=== PATIENT | male | born 1935 | race Caucasian/White ===

== ENCOUNTER 2016-12-12 15:19 | Outpatient (CLI) | payer MEDICARE, OTHER | END 2016-12-12 15:20 | disposition home or self-care (01) | LOC: RT 15:19 | PROVIDERS: ATTEND Nurse Practitioner Family | DX: R07.9 Chest pain, unspecified (principal) | CPT/HCPCS: 93005 ==

== ENCOUNTER 2020-01-14 11:50 | Outpatient (CLI) | payer MEDICARE, OTHER ==
[2020-01-14 16:04] LABS: BASOPHILS # (AUTO) 0.1 10^3/uL (0.0-0.1); BASOPHILS % (AUTO) 1.1 %; EOSINOPHILS # (AUTO) 0.2 10^3/uL (0.0-0.7); EOSINOPHILS % (AUTO) 2.7 %; HGB - HEMOGLOBIN 11.4 g/dL (14.0-18.0); LYMPHOCYTES # (AUTO) 2.5 10^3/uL (1.5-3.5); LYMPHOCYTES % (AUTO) 39.5 %; MEAN CORPUSCULAR HEMOGLOBIN 35.4 pg (27.0-31.0); MEAN CORPUSCULAR HGB CONC 33.6 g/dL (32.0-36.0); MEAN CORPUSCULAR VOLUME 105.3 fL (80.0-94.0); MEAN PLATELET VOLUME 11.1 fL (7.4-11.4); MONOCYTES # (AUTO) 0.7 10^3/uL (0.0-1.0); MONOCYTES % (AUTO) 11.1 %; NEUTROPHILS # (AUTO) 2.9 10^3/uL (1.5-6.6); NEUTROPHILS % (AUTO) 45.3 %; PLT - PLATELET COUNT 179 10^3/uL (130-450); RED BLOOD COUNT 3.22 10^6/uL (4.70-6.10); RED CELL DISTRIBUTION WIDTH 14.7 % (12.0-15.0); WHITE BLOOD COUNT 6.4 x10^3/uL (4.8-10.8)
[2020-01-14 16:12] LABS: ALBUMIN 3.8 g/dL (3.2-5.5); ALBUMIN/GLOBULIN RATIO 1.2 (1.0-2.2); BILIRUBIN,TOTAL 1.4 mg/dL (0.2-1.0); CREATININE 0.9 mg/dL (0.6-1.2)
== END 2020-01-14 11:51 | disposition home or self-care (01) ==
LOC: LAB.S 11:50
PROVIDERS: ATTEND Internal Medicine
DX: R63.4 Abnormal weight loss (principal)
CPT/HCPCS: 36415; 80053; 84443; 85025

== ENCOUNTER 2020-02-05 14:52 | Outpatient (CLI) | payer MEDICARE, OTHER ==
[2020-02-05 20:44] LABS: FOLATE 10.6 ng/mL (5.90 - >24.8)
== END 2020-02-05 14:53 | disposition home or self-care (01) ==
LOC: LAB.S 14:52
PROVIDERS: ATTEND Nurse Practitioner Family
DX: D53.9 Nutritional anemia, unspecified (principal)
CPT/HCPCS: 36415; 82607; 82746; 82977

== ENCOUNTER 2020-04-26 13:41 | Outpatient (CLI) | payer MEDICARE, OTHER ==
[2020-04-26 20:43] LABS: GAMMA GLUTAMYL TRANSPEPTIDASE 26 IU/L (8-55); LIPASE 39 U/L (22-51)
[2020-04-26 21:06] LABS: CRP - C-REACTIVE PROTEIN < 1.0 mg/dL (0-1.0)
== END 2020-04-26 13:42 | disposition home or self-care (01) ==
LOC: LAB.S 13:41
PROVIDERS: ATTEND Family Medicine
DX: R63.4 Abnormal weight loss (principal); Z85.46 Personal history of malignant neoplasm of prostate
CPT/HCPCS: 36415; 82977; 83690; 84153; 86140

== ENCOUNTER 2020-05-19 09:21 | Outpatient (CLI) | payer MEDICARE, OTHER ==
[2020-05-19] MEDS ORDERED: IOVERSOL 320 100 ML VIAL IVP ONE ×2 (09:50→11:02)
[2020-05-19] MEDS ORDERED: IOVERSOL 320 50 ML VIAL ONE (09:50)
[2020-05-19 10:08] LABS: ALBUMIN 3.8 g/dL (3.2-5.5); ALBUMIN/GLOBULIN RATIO 1.2 (1.0-2.2); BILIRUBIN,TOTAL 1.1 mg/dL (0.2-1.0); CALCIUM 9.5 mg/dL (8.5-10.3); CREATININE 0.9 mg/dL (0.6-1.2)
[2020-05-19] MEDS ORDERED: IOVERSOL 320 50 ML VIAL PO ONE (11:02)
--- NOTE | 2020-05-19 14:47 | CT Report ---
PROCEDURE: Abdomen/Pelvis W INDICATIONS: ABN WEIGHT LOSS CONTRAST: IV CONTRAST: Optiray 320 ml: 100 PO CONTRAST: Optiray 320 ml50 TECHNIQUE: After the administration of oral and IV contrast, 5 mm thick sections acquired from the diaphragms to the symphysis. 5 mm thick coronal and sagittal reformats were acquired. For radiation dose reducti on, the following was used: automated exposure control, adjustment of mA and/or kV according to [place] ent size. COMPARISON: None. FINDINGS: Image quality: Excellent. ABDOMEN: Lung bases: There are right lower lobe scars and atelectasis. Heart size is normal. Small hiatal he rnia. Concentric thickening at the GE junction. Solid organs: A 4 mm low-density nodule in the anterior hepatic dome is most likely a cyst. Liver an d spleen are normal in size and enhancement. Gallbladder is normal. Biliary system is non dilated. Pancreas enhances normally. No adrenal nodules. Kidneys demonstrate normal size and enhancement, w ithout hydronephrosis. Peritoneum and bowel: Note is made of partial colectomy and a colostomy in the left lower quadrant. T here is a large amount of stool in colon. Bowel loops demonstrate normal wall thickness and caliber. No free fluid or air. Nodes and vessels: No retroperitoneal or mesenteric adenopathy by size criteria. Aorta and inferior vena cava are normal in size. Miscellaneous: Mild parastomal hernia containing a short segment of colon at the colostomy site. PELVIS: Genitourinary: Bladder wall thickness is normal. There are metallic implants in prostate. Miscellaneous: No inguinal hernias or adenopathy. Bones: No suspicious bony lesions. No vertebral body compression fractures. Mild degenerative walker ges in lumbar spine. IMPRESSION: 1. There is a small hiatal hernia with concentric thickening at GE junction. Upper endoscopy or esoph agram is suggested for follow-up evaluation. 2. Partial colectomy and a colostomy in the left lower quadrant. There is mild peristomal hernia with herniation of a short segment of colon. No findings to suggest colonic obstruction. 3. Large amount of stool in colon. 4. Right lower lobe scars and atelectasis. 5. Metallic instruments in prostate. Reviewed by: Jeremiah Rosario MD on 05/19/2020 2:46 PM PST Approved by: Jeremiah Rosario MD on 05/19/2020 2:46 PM PST Station ID: [id number]
== END 2020-05-19 09:22 | disposition home or self-care (01) ==
LOC: DI 09:21
PROVIDERS: ATTEND Family Medicine
DX: R63.4 Abnormal weight loss (principal); K44.9 Diaphragmatic hernia without obstruction or gangrene; K94.09 Other complications of colostomy
CPT/HCPCS: 36415; 74177; 80053; Q9967

== ENCOUNTER 2021-08-21 09:27 | Outpatient (CLI) | payer MEDICARE, OTHER ==
--- NOTE | 2021-08-21 10:01 | XRAY Report ---
PROCEDURE: Chest 2 View X-Ray INDICATIONS: RESPIRATORY CRACKLES TECHNIQUE: 2 view(s) of the chest. COMPARISON: None. FINDINGS: Surgical changes and devices: Median sternotomy wires are intact. Multiple clips in the mediastinum c ompatible with prior CABG. Lungs and pleura: No pneumothorax. Lungs are clear. There is minimal blunting of the bilateral cos tophrenic angles without substantial pleural effusion visualized. Mediastinum: Mediastinal contours are normal. Heart size is normal. Bones and chest wall: No suspicious bony abnormalities. Soft tissues appear unremarkable. IMPRESSION: Minimal blunting of the bilateral costophrenic angles which may represent pleural thicke atif/scarring versus tiny pleural effusions. Otherwise, no acute cardiopulmonary abnormalities identi fied. No focal airspace disease. Reviewed by: Nicholas Hodges MD on 08/21/2021 10:00 AM [facility] Approved by: Nicholas Hodges MD on 08/21/2021 10:00 AM [facility] Station ID: [id number]
== END 2021-08-21 09:28 | disposition home or self-care (01) ==
LOC: DI.S 09:27
PROVIDERS: ATTEND Internal Medicine
DX: R09.89 Other specified symptoms and signs involving the circulatory and respiratory systems (principal); R91.8 Other nonspecific abnormal finding of lung field

== ENCOUNTER 2023-02-04 08:24 | Outpatient (CLI) | payer MEDICARE, OTHER ==
[2023-02-04 14:28] LABS: BASOPHILS % (AUTO) 0.4 %; EOSINOPHILS % (AUTO) 1.1 %; HCT - HEMATOCRIT 32.8 % (42.0-52.0); HGB - HEMOGLOBIN 10.8 g/dL (14.0-18.0); MEAN CORPUSCULAR HEMOGLOBIN 34.6 pg (27.0-31.0); MEAN CORPUSCULAR HGB CONC 32.9 g/dL (32.0-36.0); MEAN CORPUSCULAR VOLUME 105.1 fL (80.0-94.0); MEAN PLATELET VOLUME 10.7 fL (7.4-11.4); MONOCYTES % (AUTO) 4.4 %; NEUTROPHILS % (AUTO) 13.9 %; PLT - PLATELET COUNT 168 10^3/uL (130-450); RED BLOOD COUNT 3.12 10^6/uL (4.70-6.10); RED CELL DISTRIBUTION WIDTH 17.4 % (12.0-15.0); WHITE BLOOD COUNT 21.5 x10^3/uL (4.8-10.8)
[2023-02-04 14:31] LABS: ABNORMAL LYMPHS % (MANUAL) 0 %; BAND NEUTROPHILS % (MANUAL) 0 %
[2023-02-04 14:54] LABS: ALBUMIN/GLOBULIN RATIO 1.7 (1.0-2.2); BILIRUBIN,TOTAL 1.2 mg/dL (0.2-1.0); CALCIUM 9.6 mg/dL (8.5-10.3); CREATININE 0.9 mg/dL (0.6-1.3); EOSINOPHILS # (MANUAL) 0.2 10^3/uL (0-0.7); LYMPHOCYTES # (MANUAL) 15.7 10^3/uL (1.5-3.5); LYMPHOCYTES % (MANUAL) 73 %; MONOCYTES # (MANUAL) 0.6 10^3/uL (0.0-1.0); NEUTROPHILS # (MANUAL) 4.9 10^3/uL (1.5-6.6); PLATELET ESTIMATE, MANUAL NORMAL (130-450,000) (NORMAL); PLATELET MORPHOLOGY NORMAL APPEARANCE (NORMAL); POTASSIUM 4.3 mmol/L (3.5-4.5); RBC MORPHOLOGY (MULTIPLE) NORMAL APPEARANCE (NORMAL); TOTAL PROTEIN 6.3 g/dL (6.4-8.9)
[2023-02-04 14:55] LABS: DIFFERENTIAL COMMENT MANUAL DIFFERENTIAL
[2023-02-04 21:29] LABS: ESTIMATED AVERAGE GLUCOSE 105 mg/dL (70-100); HEMOGLOBIN A1c% 5.3 % (4.27-6.07)
== END 2023-02-04 08:25 | disposition home or self-care (01) ==
LOC: LAB.S 08:24
PROVIDERS: ATTEND Internal Medicine
DX: R35.89 Other polyuria (principal); Z85.46 Personal history of malignant neoplasm of prostate; Z92.3 Personal history of irradiation
CPT/HCPCS: 36415; 80053; 83036; 84153; 85025

== ENCOUNTER 2023-02-05 13:26 | Outpatient (CLI) | payer MEDICARE, OTHER ==
[2023-02-05 19:50] LABS: BASOPHILS % (AUTO) 0.5 %; EOSINOPHILS % (AUTO) 0.6 %; HCT - HEMATOCRIT 33.7 % (42.0-52.0); HGB - HEMOGLOBIN 10.9 g/dL (14.0-18.0); LYMPHOCYTES % (AUTO) 75.8 %; MEAN CORPUSCULAR HEMOGLOBIN 34.3 pg (27.0-31.0); MEAN CORPUSCULAR HGB CONC 32.3 g/dL (32.0-36.0); MEAN PLATELET VOLUME 11.6 fL (7.4-11.4); MONOCYTES % (AUTO) 4.3 %; NEUTROPHILS % (AUTO) 18.5 %; PLT - PLATELET COUNT 181 10^3/uL (130-450); RED BLOOD COUNT 3.18 10^6/uL (4.70-6.10); RED CELL DISTRIBUTION WIDTH 17.2 % (12.0-15.0); WHITE BLOOD COUNT 22.2 x10^3/uL (4.8-10.8)
[2023-02-05 19:59] LABS: ABNORMAL LYMPHS % (MANUAL) 0 %
[2023-02-05 20:46] LABS: BAND NEUTROPHILS % (MANUAL) 1 %; EOSINOPHILS # (MANUAL) 0.2 10^3/uL (0-0.7); LYMPHOCYTES # (MANUAL) 14.7 10^3/uL (1.5-3.5); LYMPHOCYTES % (MANUAL) 66 %; METAMYELOCYTES % (MANUAL) 1 %; MONOCYTES # (MANUAL) 0.7 10^3/uL (0.0-1.0); NEUTROPHILS # (MANUAL) 6.4 10^3/uL (1.5-6.6)
[2023-02-05 20:54] LABS: DIFFERENTIAL COMMENT MANUAL DIFFERENTIAL; PLATELET ESTIMATE, MANUAL NORMAL (130-450,000) (NORMAL); PLATELET MORPHOLOGY NORMAL APPEARANCE (NORMAL)
== END 2023-02-05 13:27 | disposition home or self-care (01) ==
LOC: LAB.S 13:26
PROVIDERS: ATTEND Internal Medicine
DX: D72.829 Elevated white blood cell count, unspecified (principal); D64.9 Anemia, unspecified
CPT/HCPCS: 36415; 85025

== ENCOUNTER 2023-02-13 00:40 | Outpatient (CLI) | payer MEDICARE, OTHER | END 2023-02-13 23:59 | disposition critical access hospital (66) | LOC: EMS 00:40 | DX: N48.89 Other specified disorders of penis (principal); R39.15 Urgency of urination; R32 Unspecified urinary incontinence | CPT/HCPCS: A0425; A0429 ==

== ENCOUNTER 2023-02-13 01:17 | Emergency (ER) | payer MEDICARE, OTHER ==
--- OUTSIDE RECORDS SUMMARY | 2023-02-13 01:33 | EXTERNAL MEDICAL SUMMARY RPT | Continuity of Care Document ---
Author Name Unknown Address [address] [place] [address] Phone Organization [place] Address [address] [place] [address] Phone Care Team Providers Care Retail Analyst Name Role Phone Judi Blanca Pa-C Unavailable Unavailable Medications date description facility 2022-11-17 00:00 [facility] [place] 2022-11-17 00:00 [facility] [place] 2022-11-17 00:00 [facility] [place] 2022-11-17 00:00 [facility] [place] 2022-11-17 00:00 omega 2-gyr-zlj-fish oil [facility] [place] 2022-11-17 00:00 omega 7-hhu-ihq-fish oil [facility] [place] 2022-11-17 00:00 omega 7-ybm-wid-fish oil [facility] [place] 2022-11-17 00:00 multivitamin [facility] [place]
[2023-02-13 03:20] LABS: BILIRUBIN,URINE NEGATIVE (NEGATIVE); GLUCOSE, URINE (UA) NEGATIVE (NEGATIVE); KETONES,URINE (UA) NEGATIVE (NEGATIVE); LEUKOCYTE ESTERASE, URINE NEGATIVE (NEGATIVE); NITRITE,URINE NEGATIVE (NEGATIVE); OCCULT BLOOD,URINE NEGATIVE (NEGATIVE); PH,URINE 6.5 PH (5.0-7.5); PROTEIN,URINE NEGATIVE (NEGATIVE); UROBILINOGEN,URINE 0.2 (NORMAL) E.U./dL (NORMAL)
[2023-02-13 03:25] LABS: CLARITY,URINE CLEAR (CLEAR)
--- NOTE | 2023-02-13 03:37 | ED Physician Documentation ---
PD HPI MALE - Stated complaint Stated Complaint: - Chief complaint Chief Complaint: General - History obtained from History obtained from: Patient - History of Present Illness Timing - onset: Enter time (13:00), Yesterday - Additional information Additional information: HPI from patient. Since mid-day, yesterday, patient has been experiencing episodic penile pain. He says the pain comes on gradually, slowly builds in intensity, and is relieved with sudden , uncontrollable urine output (he is thus wearing adult diapers since yesterday, which he has never had to use before). After the urine output, the penile pain gradually reoccurs and the cycle starts again. He has never had this problem before. Review of Systems Constitutional: reports: Reviewed and negative GI: denies: Abdominal Pain, Abdominal Swelling, Nausea, Vomiting, Constipation : reports: Incontinent. 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 - Past Surgical History General: Bowel surgery Cardiovascular: CABG - Present Medications Home Medications: Ambulatory Orders Medication Instructions Recorded Confirmed Atorvastatin Calcium 20 mg PO HS 02/13/23 02/13/23 Multivitamin 1 each PO DAILY 02/13/23 02/13/23 Nitrofurantoin [Macrobid] 100 mg PO BID #10 cap 02/13/23 02/13/23 [place]-3 Fatty Acids [[place]-3] 1,000 mg PO DAILY 02/13/23 02/13/23 Phenazopyridine HCl [Pyridium] 200 mg PO TID PRN #6 tablet 02/13/23 02/13/23 Docusate Sodium 100Mg Capsule 100 mg PO DAILY PRN #14 cap 02/14/23 [Colace 100Mg Capsule] HYDROcod/ACETAM 5/325 [[place] 5/325] 1 tab PO Q4H PRN #5 tablet 02/14/23 - Allergies Allergies/Adverse Reactions: Allergies Allergy/AdvReac Type Severity Reaction Status Date / Time No Known Drug Allergies Allergy Verified 02/13/23 20:09 - Social History Does the pt smoke?: No Smoking Status: Never smoker Does the pt drink ETOH?: No Does the pt have substance abuse?: No - Immunizations Immunizations are current?: Yes PD ED PE NORMAL - Vitals Vital signs reviewed: Yes - General General: Alert and oriented X 3, No acute distress, Well developed/nourished - Cardiac Cardiac: RRR - Respiratory Respiratory: No respiratory distress, Clear bilaterally - Abdomen Abdomen: Soft, Non tender, Non distended, Other (LLQ colostomy bag in place, small amount firm stool in bag) - Back Back: No CVA TTP - Derm Derm: Normal color, Warm and dry - Neuro Neuro: Alert and oriented X 3 Results - Vitals Vitals: Oxygen O2 Source Room air - Labs Labs: Laboratory Tests 02/13/23 02/13/23 02/13/23 03:13 04:21 04:21 WBC 20.3 H RBC 2.99 L Hgb 10.1 L Hct 30.6 L MCV 102.3 H MCH 33.8 H MCHC 33.0 RDW 17.2 H Plt Count 151 MPV 10.2 Neut # (Auto) Not Reportable Lymph # (Auto) Not Reportable [place] # (Auto) Not Reportable Eos # (Auto) Not Reportable Baso # (Auto) Not Reportable Absolute Nucleated RBC Not Reportable Total Counted 100 Band Neuts % (Manual) 7 Abnorm Lymph % (Manual) 0 Nucleated RBC % Not Reportable Neutrophils # (Manual) 6.5 Lymphocytes # (Manual) 12.2 H Monocytes # (Manual) 0.8 Eosinophils # (Manual) 0.8 H Basophils # (Manual) 0.0 Differential Comment MANUAL DIFFERENTIAL Platelet Estimate NORMAL (130-450,000) RBC Morph Micro Appear 1+ MACROCYTOSIS Sodium 136 Potassium 4.6 H Chloride 105 Carbon Dioxide 27 Anion Gap 4.0 L BUN 29 H Creatinine 0.9 Estimated GFR (MDRD) 80 L Glucose 89 Calcium 9.3 Total Bilirubin 1.1 H AST 27 ALT 21 Alkaline Phosphatase 40 L Total Protein 6.2 L Albumin 3.9 Globulin 2.3 Albumin/Globulin Ratio 1.7 Lipase 53 Urine Color YELLOW Urine Clarity CLEAR Urine pH 6.5 Ur Specific [place] 1.015 Urine Protein NEGATIVE Urine Glucose (UA) NEGATIVE Urine Ketones NEGATIVE Urine Occult Blood NEGATIVE Urine Nitrite NEGATIVE Urine Bilirubin NEGATIVE Urine Urobilinogen 0.2 (NORMAL) Ur Leukocyte Esterase NEGATIVE Ur Microscopic Review NOT INDICATED Urine Culture Comments NOT INDICATED - Rads (name of study) CT A/P Relevant Findings:: Prelim report reviewed, See rad report PD Medical Decision Making - ED course Complexity details: reviewed results, re-evaluated patient, considered differential, d/w patient ED course: Tests ordered and results reviewed by me: CBC, ER abdominal panel, urinalysis, CT A/P with IV contrast. Leukocytosis noted on CBC: WBC 20.3. I note patient had a CBC performed on 02/04, WBC 21.5. I also note WBC of 22.2 performed on 02/05 in outpatient setting. I asked patient why he had these outpatient blood test, but he cannot recall why these were ordered. He says he was made aware that his white blood cell count was high, and he thinks this was the reason it was repeated. He says he had not heard back from his primary care provider yet regarding the repeat result. Mild hyperkalemia (K4.6). Mildly elevated BUN (29) with normal creatinine (0.9). Normal urinalysis. CT A/P is interpreted by the radiologist as "suspect mild cystitis. No evidence of pyonephrosis or pyelonephritis". He is given a dose of Macrobid in the emergency department along with Pyridium. My suspicion for UTI is low, given normal urinalysis and symptoms are not s/o UTI. However, given CT reading of possible mild cystitis, combined with leukocytosis without explanation for this finding, erring on the side of caution, he is given Macrobid with rx for same. Results reviewed with patient. I explained that I am treating for UTI although I have low suspicion that this is causing/contributing to his symptoms. Similarly, at this time, I do not have an explanation for his leukocytosis. I advised him to seek follow-up with his primary care provider, next available appointment, for reevaluation of his symptoms as well as his elevated white blood cell count. Return precautions are discussed. Departure - Departure Disposition: Home, Self Care Clinical Impression: Cystitis Condition: Good Instructions: ED UTI Cystitis Male Prescriptions: Nitrofurantoin [Macrobid] 100 mg PO BID #10 cap Phenazopyridine HCl [Pyridium] 200 mg PO TID PRN #6 tablet PRN Reason: dysuria Comments: Your white blood cell count was high on tonight's blood test. As we discussed, your previous to white blood cell count tests (performed over the past several days) were similarly elevated. The cause of your high white blood cell count is not apparent at this time. You need to follow-up with your primary care provider for reevaluation of this abnormal test; at your primary care provider's discretion, further tests might be needed to help determine why your white blood cell count is high. The urinalysis performed tonight is normal; this would suggest against a bladder infection. However, the CT scan of your abdomen and pelvis is suggestive of inflammation of the bladder, which is most commonly caused by a bladder infection. Erring on the side of caution, you were given an antibiotic in the emergency department (Macrobid) and I have electronically submitted a prescription for a short course of the same antibiotic to the [facility] in [place]. The cause of your penile pain is not apparent at this time, although urinary tract infection is a possible explanation. You were also given a dose of Pyridium in the emergency department; this is a medication that often helps with urinary tract infection symptoms, and hopefully this also helps with your penile pain. As we discussed, this medication will turn your urine a very unusual orange color. I have also submitted a prescription for this medication to the [facility] in [place]. Forms: PCP List Discharge Date/Time: 02/13/23 08:02
[2023-02-13 04:05] VITALS: O2SAT 100
[2023-02-13 04:37] LABS: BASOPHILS % (AUTO) 0.4 %; EOSINOPHILS % (AUTO) 1.4 %; HCT - HEMATOCRIT 30.6 % (42.0-52.0); HGB - HEMOGLOBIN 10.1 g/dL (14.0-18.0); LYMPHOCYTES % (AUTO) 67.1 %; MEAN CORPUSCULAR HEMOGLOBIN 33.8 pg (27.0-31.0); MEAN CORPUSCULAR VOLUME 102.3 fL (80.0-94.0); MEAN PLATELET VOLUME 10.2 fL (7.4-11.4); MONOCYTES % (AUTO) 5.7 %; NEUTROPHILS % (AUTO) 25.1 %; PLT - PLATELET COUNT 151 10^3/uL (130-450); RED BLOOD COUNT 2.99 10^6/uL (4.70-6.10); RED CELL DISTRIBUTION WIDTH 17.2 % (12.0-15.0); WHITE BLOOD COUNT 20.3 x10^3/uL (4.8-10.8)
[2023-02-13 04:44] LABS: ABNORMAL LYMPHS % (MANUAL) 0 %
[2023-02-13 04:56] LABS: ALBUMIN 3.9 g/dL (3.2-5.5); ALBUMIN/GLOBULIN RATIO 1.7 (1.0-2.2); BILIRUBIN,TOTAL 1.1 mg/dL (0.2-1.0); CALCIUM 9.3 mg/dL (8.5-10.3); CREATININE 0.9 mg/dL (0.6-1.3); POTASSIUM 4.6 mmol/L (3.5-4.5); TOTAL PROTEIN 6.2 g/dL (6.4-8.9)
[2023-02-13] MEDS ORDERED: ACETAMINOPHEN 325 MG TABLET PO STA (05:08)
[2023-02-13 05:29] LABS: BAND NEUTROPHILS % (MANUAL) 7 %; EOSINOPHILS # (MANUAL) 0.8 10^3/uL (0-0.7); LYMPHOCYTES # (MANUAL) 12.2 10^3/uL (1.5-3.5); LYMPHOCYTES % (MANUAL) 60 %; MONOCYTES # (MANUAL) 0.8 10^3/uL (0.0-1.0); NEUTROPHILS # (MANUAL) 6.5 10^3/uL (1.5-6.6)
[2023-02-13 05:30] LABS: DIFFERENTIAL COMMENT MANUAL DIFFERENTIAL; PLATELET ESTIMATE, MANUAL NORMAL (130-450,000) (NORMAL)
[2023-02-13] MEDS ORDERED: iohexoL-300 100 ML VIAL IVP ONE (06:11)
[2023-02-13] MEDS ORDERED: NITROFURANTOIN MACRO 100 MG CAPSULE PO STA (07:19)
[2023-02-13] MEDS ORDERED: PHENAZOPYRIDINE 100 MG TABLET PO STA (07:19)
[2023-02-13 08:49] VITALS: BP 134/74
--- NOTE | 2023-02-13 08:52 | CT Report ---
PROCEDURE: ABDOMEN/PELVIS W INDICATIONS: midline low abd/pelvic pain CONTRAST: Omni 300 100ml TECHNIQUE: After the administration of IV contrast, 5 mm thick sections acquired from the diaphragms to the symp hysis. 5 mm thick coronal and sagittal reformats were acquired. For radiation dose reduction, the f ollowing was used: automated exposure control, adjustment of mA and/or kV according to patient size. COMPARISON: 05/19/2020 FINDINGS: Image quality: Excellent. Lung bases and heart: Unremarkable. Liver: No solid mass. Gallbladder and biliary tree: Gallbladder is within normal limits. No biliary ductal dilatation. Spleen: No splenomegaly. Pancreas: No pancreatic ductal dilation. Adrenals: No adrenal nodule. Kidneys and ureters: No hydronephrosis. No renal cystic lesion which requires follow up. No solid mas s. Bowel and peritoneum: There is prior left hemicolectomy with wording colostomy construction in left l ower quadrant. There is no bowel obstruction. Fecal stasis in the colon is seen. No gross abnormal samir wel wall thickening. No abscess collection. No free fluid or free air. Lymph nodes: No central or retroperitoneal adenopathy. Vessels: No infrarenal aortic aneurysm. PELVIS Reproductive organs: Brachytherapy seeds are seen within the prostate gland.. Bladder: Bladder wall thickness is normal. Mild pericystic fat stranding is noted. No discrete bladde r wall mass is seen. Pelvic lymph nodes: No pelvic adenopathy by size criteria. Bones: No aggressive osseous abnormality. Other: No significant ventral or inguinal hernia. IMPRESSION: 1. Finding is concerning for mild cystitis with pericystic fat stranding. No bladder wall thickening or discrete bladder wall mass. Neurological correlation is recommended. 2. Prior left hemicolectomy with left-sided colostomy construction. No bowel fracture nor abnormal samir wel wall thickening. No abscess collection. No free fluid or free air. Findings are concordant with preliminary interpretation provided by [facility]. Reviewed by: Jez Zamudio MD on 02/13/2023 8:51 AM PDT Approved by: Jez Zamudio MD on 02/13/2023 8:51 AM PDT Station ID: [id number]
== END 2023-02-13 08:02 | disposition home or self-care (01) ==
LOC: EDUNIT# → ED 01:17
DX: N30.90 Cystitis, unspecified without hematuria (principal); E78.00 Pure hypercholesterolemia, unspecified; Z85.46 Personal history of malignant neoplasm of prostate; Z85.048 Personal history of other malignant neoplasm of rectum, rectosigmoid junction, and anus; Z79.899 Other long term (current) drug therapy
CPT/HCPCS: 36415; 74177; 80053; 81003; 83690; 85025; 99284; A9270; Q9967; 81001; 87086

== ENCOUNTER 2023-02-13 20:06 | Day surgery (SDC) | payer MEDICARE, OTHER ==
--- OUTSIDE RECORDS SUMMARY | 2023-02-13 20:35 | EXTERNAL MEDICAL SUMMARY RPT | Continuity of Care Document ---
Author Name Unknown Address [address] [place] [address] Phone Organization [place] Address [address] [place] [address] Phone Care Team Providers Care Farmworker Fruit Name Role Phone Judi Blanca Pa-C Unavailable Unavailable Medications date description facility 2022-11-17 00:00 [facility] [place] 2022-11-17 00:00 [facility] [place] 2022-11-17 00:00 [facility]atin [facility] [place] 2022-11-17 00:00 [facility]atin [facility] [place] 2022-11-17 00:00 omega 7-ujx-tso-fish oil [facility] [place] 2022-11-17 00:00 omega 8-nsa-zli-fish oil [facility] [place] 2022-11-17 00:00 omega 4-zka-wbv-fish oil [facility] [place] 2022-11-17 00:00 multivitamin [facility] [place]
--- NOTE | 2023-02-13 23:20 | ED Physician Documentation ---
PD HPI MALE - Stated complaint Stated Complaint: - Chief complaint Chief Complaint: General - History obtained from History obtained from: Patient - Additional information Additional information: Patient was treated and released last night from this emergency department for "penis pain" (per patient). I was the ED physician on duty at that time. He was treated with Macrobid for possible UTI (normal urinalysis, but CT A/P was consistent with inflammation of the bladder wall) and Pyridium. Both of these medications were also prescribed. He returns at this time due to recurrence of his penile pain which is now spreading to the suprapubic area and around to the low back, and associated with inability to urinate despite urge to urinate. The pain has now become constant (last night it was episodic). Review of Systems Constitutional: reports: Reviewed and negative GI: denies: Abdominal Pain (suprapubic pain, distention but not abdominal pain per se), Nausea, Vomiting, Constipation : reports: Unable to Void PD PAST MEDICAL HISTORY - Past Medical History Cardiovascular: High cholesterol - Past Surgical History General: Bowel surgery Cardiovascular: CABG Other past surgical history: colostomy placed approximately 2003 (rectal cancer) - Present Medications Home Medications: Ambulatory Orders Medication Instructions Recorded Confirmed Atorvastatin Calcium 20 mg PO HS 02/13/23 02/13/23 Multivitamin 1 each PO DAILY 02/13/23 02/13/23 Nitrofurantoin [Macrobid] 100 mg PO BID #10 cap 02/13/23 02/13/23 [place]-3 Fatty Acids [[place]-3] 1,000 mg PO DAILY 02/13/23 02/13/23 Phenazopyridine HCl [Pyridium] 200 mg PO TID PRN #6 tablet 02/13/23 02/13/23 Docusate Sodium 100Mg Capsule 100 mg PO DAILY PRN #14 cap 02/14/23 [Colace 100Mg Capsule] HYDROcod/ACETAM 5/325 [[place] 5/325] 1 tab PO Q4H PRN #5 tablet 02/14/23 - Allergies Allergies/Adverse Reactions: Allergies Allergy/AdvReac Type Severity Reaction Status Date / Time No Known Drug Allergies Allergy Verified 02/13/23 20:09 - Social History Does the pt smoke?: No Smoking Status: Never smoker Does the pt drink ETOH?: No Does the pt have substance abuse?: No - Immunizations Immunizations are current?: Yes PD ED PE NORMAL - Vitals Vital signs reviewed: Yes - General General: Alert and oriented X 3, No acute distress, Well developed/nourished - Cardiac Cardiac: RRR, No murmur - Respiratory Respiratory: No respiratory distress, Clear bilaterally - Abdomen Abdomen: Soft, Other (suprapubic TTP. LLQ colostomy in place, small amount firm stool in bag) - Derm Derm: Normal color, Warm and dry - Extremities Extremities: No edema - Neuro Neuro: Alert and oriented X 3 Results - Vitals Vitals: Vital Signs - 24 hr 02/13/23 02/13/23 02/14/23 20:09 22:04 00:00 Temperature 36.5 C Heart Rate 64 58 L 72 Respiratory 18 16 16 Rate Blood Pressure 150/70 H 148/66 H 136/71 H O2 Saturation 97 98 97 02/14/23 02/14/23 02/14/23 02:00 04:00 06:00 Temperature Heart Rate 70 71 83 Respiratory 16 16 16 Rate Blood Pressure 139/84 H 137/74 H 138/75 H O2 Saturation 97 97 97 02/14/23 02/14/23 08:00 09:18 Temperature 36.5 C Heart Rate 76 74 Respiratory 16 16 Rate Blood Pressure 135/95 H 129/62 O2 Saturation 98 98 Oxygen O2 Source Room air PD Medical Decision Making - ED course Complexity details: re-evaluated patient, considered differential, d/w patient ED course: Patient was treated released from this emergency department last night. At that time, testing included blood work , UA, and CT A/P. There were no diagnostic findings on these tests. CT scan was suspicious for bladder inflammation and leukocytosis noted; he was given / prescribed both pyridium and macrobid. His description of cycles of increasing penile pain that was relieved when he would have sudden, uncontrollable UO (sudden output and thus he was wearing adult diapers, never having had to use them previously). He returned tonight due to the pain becoming constant associated with no urine output and now with suprapubic pain radiating around to his back. Bladder appears substantially distended on my bedside ultrasound and he is tender in the suprapubic area. Unfortunately, multiple attempts to place both Osorio catheter and coud catheter were unsuccessful. With some of these attempts, though unsuccessful, withdrawal the catheter was immediately followed by modest amount of urine output, which would partially alleviate the patient's symptoms, only to have them gradually return and worsen. Patient was in the ED for an extended amount of time. I discussed this case with Dr. Treadwell (on-call urology for [facility]). He will take patient to OR later this morning. I updated patient and he is quite pleased with this plan. Departure - Departure Disposition: ED Transfer to [facility] Clinical Impression: Urinary retention Condition: Good Discharge Date/Time: 02/14/23 09:19
--- NOTE | 2023-02-14 08:34 | CONSULTATION NOTE ---
Referring Provider Name of Referring Provider:: Dania Consult Date: 02/14/23 Chief Complaint - Chief Complaint Chief Complaint: Urinary Retention History of Present Illness - Admitted From Admitted From:: Not admitted, currently in ER - History Obtained From Records Reviewed: Nikki and Ayah History obtained from: Patient and records Exam Limitations: n/a - History of Present Illness HPI Comment/Other: Colt is an 87-year-old man with a history of prostate cancer and brachytherapy in year 1999. He had a PSA in 2022 which was undetectable. He also has a history of rectal cancer and had a colostomy placed in 2003 he has had neurological issues including ataxia. He has presented to the hospital multiple times with penile pain and frequency and urgency of urination. He now presents again with similar issues but this time he cannot void. A bladder scan showed his bladder to be over a liter in size. Nurses attempted to place a catheter and they were unable to. Urology was consulted. He is n.p.o. He appears nontoxic. Vitals are stable. He has had some small volume voids but he clearly is still in retention History - Past Medical History Cardiovascular: reports: High cholesterol - Past Surgical History General: reports: Bowel surgery Cardiovascular: reports: CABG Meds/Allgy - Home Medications Home Medications: Ambulatory Orders Medication Instructions Recorded Confirmed Atorvastatin Calcium 20 mg PO HS 02/13/23 02/13/23 Multivitamin 1 each PO DAILY 02/13/23 02/13/23 Nitrofurantoin [Macrobid] 100 mg PO BID #10 cap 02/13/23 02/13/23 [place]-3 Fatty Acids [[place]-3] 1,000 mg PO DAILY 02/13/23 02/13/23 Phenazopyridine HCl [Pyridium] 200 mg PO TID PRN #6 tablet 02/13/23 02/13/23 - Allergies Allergies/Adverse Reactions: Allergies Allergy/AdvReac Type Severity Reaction Status Date / Time No Known Drug Allergies Allergy Verified 02/13/23 20:09 Exam - Vital Signs Reviewed Vital Signs: Yes Vital Signs: Vital Signs x48h Temp Pulse Resp BP Pulse Ox 02/14/23 08:00 36.5 C 76 16 135/95 H 98 02/14/23 06:00 83 16 138/75 H 97 02/14/23 04:00 71 16 137/74 H 97 02/14/23 02:00 70 16 139/84 H 97 - Physical Exam General Appearance: positive: No acute distress Respiratory: positive: Breath sounds nml Cardiovascular: positive: Regular rate & rhythm Abdomen: positive: Other (colostomy) Conclusion and Plan - Diagnostic Imaging Results Diagnostic Imaging Results: positive: Read independently (CT reviewed, has bowel relatively close to space of retzius) - Diagnosis Diagnosis: Urinary retention - Consultation Note Consultation Note: 87-year-old male with history of prostate cancer and brachytherapy now with urinary retention with difficulty placing catheter. Strong likelihood of urethral stricture. He will require more complex management of catheter placement. - Plan Plan: We discussed cystoscopy, urethral dilation, possible suprapubic tube placement. The risks benefits and alternatives were discussed with the patient. All questions were answered. The patient states understanding and consents for the procedure. The plan will be for him to go home afterwards with a catheter in place. He will need follow-up and further management. He is n.p.o. and as he has been retention for at least 12 hours I am hoping to do this soon
[2023-02-14] MEDS ORDERED: ONDANSETRON 4 MG/2 ML VIAL IVP PRN ×2 (08:52→09:36)
[2023-02-14] MEDS ORDERED: ePHEDrine 50 MG/ML VIAL IVP PRN (08:52)
[2023-02-14] MEDS ORDERED: MORPHINE 2 MG/ML CARPUJECT IVP PRN (08:52)
[2023-02-14] MEDS ORDERED: fentaNYL 100 MCG/2 ML VIAL IVP PRN (08:52)
[2023-02-14] MEDS ORDERED: HYDROmorphone 0.5 MG/0.5 ML SYRINGE IVP PRN (08:52)
[2023-02-14] MEDS ORDERED: METOCLOPRAMIDE 10 MG/2 ML VIAL IVP PRN (08:52)
[2023-02-14] MEDS ORDERED: NALOXONE 0.4 MG/ML VIAL IVP PRN (08:52)
[2023-02-14] MEDS ORDERED: ATROPINE ABBOJECT 1 MG/10 ML SYRINGE IVP PRN (08:52)
--- NOTE | 2023-02-14 08:53 | ANESTHESIA ---
Pre-Anesthesia VS, & Labs - Diagnosis Diagnosis Urinary retention - Procedure cysto w/urethral dilation Vital Signs: Temp Pulse Resp BP Pulse Ox O2 Flow Rate 36.5 C 76 16 135/95 H 98 02/14/23 08:00 02/14/23 08:00 02/14/23 08:00 02/14/23 08:00 02/14/23 08:00 Height: 5 ft 10.8 in Weight (kg): 137 kg Body Mass Index: 42.3 BMI Classification: Morbidly Obese - NPO >8 hours Home Medications and Allergies Atorvastatin Calcium 20 mg PO HS 02/13/23 Multivitamin 1 each PO DAILY 02/13/23 [place]-3 Fatty Acids [[place]-3] 1,000 mg PO DAILY 02/13/23 Allergies/Adverse Reactions: Allergies Allergy/AdvReac Type Severity Reaction Status Date / Time No Known Drug Allergies Allergy Verified 02/13/23 20:09 Anes History & Medical History - Anesthetic History Anesthesia Complications: reports: No previous complications Family history of Anesthesia Complications: Denies Family history of Malignant Hyperthermia: Denies - Medical History Cardiovascular: reports: Hypertension, High cholesterol, PR Smoking Status: Never smoker Psychosocial: reports: No issues indicated - Surgical History General: reports: Bowel surgery Cardiothoracic: reports: CABG Exam General: Alert, Oriented x3, Cooperative Dental: Dentures full Upper, Dentures full Lower Mouth Openin Fingerbreadth Neck Mobility: Normal Mallampati classification: II Thyromental Distance: 4-6 cm Respiratory: Lungs clear, Normal breath sounds, No respiratory distress Cardiovascular: Regular rate Neurological: Normal speech Mental/Cognitive Status: Alert/Oriented X3, Normal for patient Cognitive Status: Within normal limits Plan Anesthesia Type: General Consent for Procedure(s) Verified and Reviewed: Yes Code Status: Attempt Resuscitation ASA classification: 3-Severe systemic disease Is this case an emergency?: Yes
[2023-02-14] MEDS ORDERED: LACTATED RINGERS 1,000 ML IV SCH (09:00)
[2023-02-14] MEDS ORDERED: LIDOCAINE-PF 2% 10 ML AMP SUBQ ONE (09:01)
[2023-02-14] MEDS ORDERED: PROPOFOL 200 MG/20 ML VIAL IVP ONE (09:01)
[2023-02-14] MEDS ORDERED: LIDOCAINE 2% URO-JET 5 ML SYRINGE UR ONE ×2 (09:04→09:27)
[2023-02-14] MEDS ORDERED: ONDANSETRON 4 MG/2 ML VIAL ONE (09:25)
[2023-02-14] MEDS ORDERED: ceFAZolin 1 GM VIAL ONE (09:27)
[2023-02-14] MEDS ORDERED: ePHEDrine 50 MG/ML VIAL IVP ONE (09:32)
[2023-02-14] MEDS ORDERED: HYDROcod/ACETAM 5/325 MG TABLET PO PRN (09:36)
--- NOTE | 2023-02-14 09:41 | Discharge Plan ---
Discharge Plan Problem Reviewed?: Yes Disposition: Home, Self Care Condition: Good Prescriptions: Docusate Sodium 100Mg Capsule [Colace 100Mg Capsule] 100 mg PO DAILY PRN #14 cap PRN Reason: Constipation HYDROcod/ACETAM 5/325 [[place] 5/325] 1 tab PO Q4H PRN #5 tablet PRN Reason: Pain Diet: Regular Activity Restrictions: No Restrictions Shower Restrictions: No (no bathing) Driving Restrictions: No (no driving while taking pain medications) Instruction Topics: Catheter Bag Urinary Empty Clean, Leg Bag Care Dc Additional Instructions or Follow Up instructions: You will be contacted for followup with Dr Treadwell, Urology next week No Smoking: If you smoke, Please STOP! Call for help.
[2023-02-14] MEDS ORDERED: LACTATED RINGERS 1,000 ML IV ONE (09:42)
--- NOTE | 2023-02-14 09:47 | OPERATIVE REPORT ---
Operative Report - General Procedure Date: 02/14/23 Planned Procedure: Cystoscopy, urethral dilation, possible suprapubic tube placement Pre-Op Diagnosis: Urinary retention Procedure Performed: Cystoscopy, urethral dilation, cystolitholapaxy, complex garza placement Post Op Diagnosis: Urinary retention, urethral stricture, bladder stone - Procedure Note Primary Surgeon: Eben Anesthesia Provider: ANKUR Mckinney Anesthesia Technique: General LMA Pathology: bladder stone Estimated Blood Loss (mL): 0 Findings: Relatively wide open urethral stricture at bulbar urethra small bladder stone Complications: none - Other Other Information/Narrative: After informed consent was obtained the patient was brought to the OR and laid in the supine position. At that point time the patient was anesthetized per anesthesia protocols. He was prepped and draped in the usual sterile dorsolithotomy fashion. His colostomy was carefully kept out of the field. A formal timeout was performed reconfirming the patient and procedure. A 22 [place] cystoscope was advanced into the urethra where a dense but relatively wide open urethral stricture was noted at the bulbar urethra. A sensor wire was placed through this. The cystoscope was then able to ride a sensor wire over this and to open up the stricture. The prostate was then seen and it was wide open consistent with distal obstruction. The bladder was only mildly trabeculated with multiple cellules. There was a small 3 mm bladder stone which was evacuated and sent for analysis. A 20 [place] southern ute tip catheter was then placed over sensor wire into the bladder. 12 cc was placed in the balloon. A Uro-Jet was placed. This concluded the procedure patient tolerated procedure well. He was brought to PACU without further incident. All counts were correct. He will follow-up in 1 week's time for a voiding trial
--- NOTE | 2023-02-14 11:58 | ANESTHESIA POST OP EVALUATION ---
Anesthesia Post Eval - Post Anesthesia Eval Vitals: Last Vital Signs Temp 36 C L 02/14/23 11:03 Pulse 70 02/14/23 11:03 Resp 16 02/14/23 11:03 BP 131/68 H 02/14/23 11:03 Pulse Ox 98 02/14/23 11:03 O2 Flow Rate CV Function Including HR & BP: Stable Pain Control: Satisfactory Nausea & Vomiting: Negative Mental Status: Baseline Respiratory Status: Airway Patent Hydration Status: Satisfactory Anesthesia Complications: None
[2023-02-14 12:54] VITALS: BP 121/71; O2SAT 99
== END 2023-02-14 08:31 | disposition home or self-care (01) ==
LOC: ED 20:06 → SDS 02-14 08:30
PROVIDERS: ATTEND Urology
PROC: 0TCB8ZZ Extirpation of Matter from Bladder, Via Natural or Artificial Opening Endoscopic (ICD-10-PCS; principal; 2023-02-14 09:30)
DX: R33.9 Retention of urine, unspecified (principal); N21.0 Calculus in bladder; N32.89 Other specified disorders of bladder; N35.919 Unspecified urethral stricture, male, unspecified site; E66.01 Morbid (severe) obesity due to excess calories; E78.00 Pure hypercholesterolemia, unspecified; I10 Essential (primary) hypertension; I25.2 Old myocardial infarction; Z68.41 Body mass index [BMI] 40.0-44.9, adult; Z79.899 Other long term (current) drug therapy; Z85.048 Personal history of other malignant neoplasm of rectum, rectosigmoid junction, and anus; Z85.46 Personal history of malignant neoplasm of prostate; Z93.3 Colostomy status; Z95.1 Presence of aortocoronary bypass graft
CPT/HCPCS: 52281; 52310; 99285; C1758; J7120

== ENCOUNTER 2023-02-20 08:41 | Outpatient (CLI) | payer MEDICARE, OTHER ==
[2023-02-20 15:17] LABS: BASOPHILS % (AUTO) 0.5 %; HGB - HEMOGLOBIN 10.9 g/dL (14.0-18.0); LYMPHOCYTES % (AUTO) 74.1 %; MEAN CORPUSCULAR VOLUME 106.1 fL (80.0-94.0); MEAN PLATELET VOLUME 11.1 fL (7.4-11.4); MONOCYTES % (AUTO) 6.3 %; NEUTROPHILS % (AUTO) 17.8 %; PLT - PLATELET COUNT 214 10^3/uL (130-450); RED BLOOD COUNT 3.11 10^6/uL (4.70-6.10); RED CELL DISTRIBUTION WIDTH 17.2 % (12.0-15.0); WHITE BLOOD COUNT 21.3 x10^3/uL (4.8-10.8)
[2023-02-20 15:26] LABS: ABNORMAL LYMPHS % (MANUAL) 0 %
[2023-02-20 16:07] LABS: BAND NEUTROPHILS % (MANUAL) 1 %; BASOPHILS # (MANUAL) 0.2 10^3/uL (0-0.1); BASOPHILS % (MANUAL) 1 %; EOSINOPHILS # (MANUAL) 0.2 10^3/uL (0-0.7); LYMPHOCYTES % (MANUAL) 80 %; MONOCYTES # (MANUAL) 0.4 10^3/uL (0.0-1.0); NEUTROPHILS # (MANUAL) 3.4 10^3/uL (1.5-6.6)
[2023-02-20 16:08] LABS: DIFFERENTIAL COMMENT MANUAL DIFFERENTIAL; PLATELET ESTIMATE, MANUAL NORMAL (130-450,000) (NORMAL); PLATELET MORPHOLOGY NORMAL APPEARANCE (NORMAL)
== END 2023-02-20 08:42 | disposition home or self-care (01) ==
LOC: LAB.S 08:41
PROVIDERS: ATTEND Internal Medicine
DX: D64.9 Anemia, unspecified (principal)
CPT/HCPCS: 36415; 85025

== ENCOUNTER 2023-02-27 11:06 | Outpatient (CLI) | payer MEDICARE, OTHER ==
[2023-02-27 14:45] LABS: BASOPHILS % (AUTO) 0.5 %; EOSINOPHILS % (AUTO) 0.3 %; HCT - HEMATOCRIT 34.3 % (42.0-52.0); HGB - HEMOGLOBIN 11.3 g/dL (14.0-18.0); LYMPHOCYTES % (AUTO) 73.2 %; MEAN CORPUSCULAR HEMOGLOBIN 34.5 pg (27.0-31.0); MEAN CORPUSCULAR HGB CONC 32.9 g/dL (32.0-36.0); MEAN CORPUSCULAR VOLUME 104.6 fL (80.0-94.0); MEAN PLATELET VOLUME 10.1 fL (7.4-11.4); MONOCYTES % (AUTO) 5.4 %; NEUTROPHILS % (AUTO) 20.2 %; PLT - PLATELET COUNT 237 10^3/uL (130-450); RED BLOOD COUNT 3.28 10^6/uL (4.70-6.10); RED CELL DISTRIBUTION WIDTH 17.3 % (12.0-15.0); WHITE BLOOD COUNT 26.6 x10^3/uL (4.8-10.8)
[2023-02-27 14:48] LABS: ABNORMAL LYMPHS % (MANUAL) 0 %
[2023-02-27 15:51] LABS: ALBUMIN 4.2 g/dL (3.2-5.5); ALBUMIN/GLOBULIN RATIO 1.6 (1.0-2.2); CALCIUM 9.9 mg/dL (8.5-10.3); POTASSIUM 4.3 mmol/L (3.5-4.5); TOTAL PROTEIN 6.9 g/dL (6.4-8.9)
[2023-02-27 17:28] LABS: BAND NEUTROPHILS % (MANUAL) 1 %; LYMPHOCYTES # (MANUAL) 19.4 10^3/uL (1.5-3.5); LYMPHOCYTES % (MANUAL) 73 %; MONOCYTES # (MANUAL) 0.3 10^3/uL (0.0-1.0); NEUTROPHILS # (MANUAL) 6.9 10^3/uL (1.5-6.6)
[2023-02-27 17:29] LABS: DIFFERENTIAL COMMENT MANUAL DIFFERENTIAL; PLATELET ESTIMATE, MANUAL NORMAL (130-450,000) (NORMAL); PLATELET MORPHOLOGY NORMAL APPEARANCE (NORMAL)
== END 2023-02-27 11:07 | disposition home or self-care (01) ==
LOC: LAB.S 11:06
PROVIDERS: ATTEND Internal Medicine
DX: Z04.89 Encounter for examination and observation for other specified reasons (principal); R33.9 Retention of urine, unspecified; D64.9 Anemia, unspecified; D72.820 Lymphocytosis (symptomatic)
CPT/HCPCS: 36415; 80053; 83615; 85025

== ENCOUNTER 2023-04-01 07:51 | Outpatient (CLI) | payer MEDICARE, OTHER ==
[2023-04-01 15:09] LABS: BASOPHILS % (AUTO) 0.5 %; EOSINOPHILS % (AUTO) 1.4 %; HCT - HEMATOCRIT 33.7 % (42.0-52.0); HGB - HEMOGLOBIN 11.3 g/dL (14.0-18.0); LYMPHOCYTES % (AUTO) 79.9 %; MEAN CORPUSCULAR HEMOGLOBIN 34.7 pg (27.0-31.0); MEAN CORPUSCULAR HGB CONC 33.5 g/dL (32.0-36.0); MEAN CORPUSCULAR VOLUME 103.4 fL (80.0-94.0); MEAN PLATELET VOLUME 10.8 fL (7.4-11.4); MONOCYTES % (AUTO) 4.6 %; NEUTROPHILS % (AUTO) 13.4 %; PLT - PLATELET COUNT 205 10^3/uL (130-450); RED BLOOD COUNT 3.26 10^6/uL (4.70-6.10); RED CELL DISTRIBUTION WIDTH 17.3 % (12.0-15.0); WHITE BLOOD COUNT 21.8 x10^3/uL (4.8-10.8)
[2023-04-01 15:10] LABS: ABNORMAL LYMPHS % (MANUAL) 0 %
[2023-04-01 15:38] LABS: BAND NEUTROPHILS % (MANUAL) 1 %; BASOPHILS # (MANUAL) 0.2 10^3/uL (0-0.1); BASOPHILS % (MANUAL) 1 %; EOSINOPHILS # (MANUAL) 0.2 10^3/uL (0-0.7); LYMPHOCYTES # (MANUAL) 16.4 10^3/uL (1.5-3.5); LYMPHOCYTES % (MANUAL) 75 %; MONOCYTES # (MANUAL) 2.2 10^3/uL (0.0-1.0); NEUTROPHILS # (MANUAL) 2.8 10^3/uL (1.5-6.6); NUCLEATED RBC (MANUAL) 1 %
[2023-04-01 15:39] LABS: PLATELET ESTIMATE, MANUAL NORMAL (130-450,000) (NORMAL); PLATELET MORPHOLOGY NORMAL APPEARANCE (NORMAL)
[2023-04-01 15:40] LABS: DIFFERENTIAL COMMENT MANUAL DIFFERENTIAL
[2023-04-01 17:38] LABS: ALBUMIN 4.3 g/dL (3.2-5.5); ALBUMIN/GLOBULIN RATIO 1.7 (1.0-2.2); BILIRUBIN,TOTAL 1.3 mg/dL (0.2-1.0); CALCIUM 9.8 mg/dL (8.5-10.3); POTASSIUM 4.2 mmol/L (3.5-4.5); TOTAL PROTEIN 6.9 g/dL (6.4-8.9)
[2023-04-02 11:44] LABS: PATHOLOGIST SLIDE COMMENTS SEE SEPARATE REPORT
== END 2023-04-01 07:52 | disposition home or self-care (01) ==
LOC: LAB.S 07:51
PROVIDERS: ATTEND Internal Medicine
DX: R33.9 Retention of urine, unspecified (principal); D64.9 Anemia, unspecified; D72.820 Lymphocytosis (symptomatic)
CPT/HCPCS: 36415; 80053; 83615; 85025

== ENCOUNTER 2023-04-08 11:14 | Outpatient (CLI) | payer MEDICARE, OTHER ==
[2023-04-08] MEDS ORDERED: iohexoL-300 100 ML VIAL IVP ONE (13:43)
--- NOTE | 2023-04-08 15:11 | CT Report ---
PROCEDURE: ABDOMEN/PELVIS W INDICATIONS: HIST OF RECTAL CA CONTRAST: 100mL Omni 300 TECHNIQUE: After the administration of contrast, 5 mm thick sections acquired from the diaphragms to the symphys is. 5 mm thick coronal and sagittal reformats were acquired. For radiation dose reduction, the foll owing was used: automated exposure control, adjustment of mA and/or kV according to patient size. COMPARISON: 02/13/2023 FINDINGS: Image quality: Excellent. Lung bases and heart: Unremarkable. Liver: The liver has low density consistent with hepatic steatosis. No solid mass. Gallbladder and biliary tree: The gallbladder is normal. No intrahepatic biliary ductal dilatation. Spleen: No splenomegaly. Pancreas: No pancreatic ductal dilation. Adrenals: No adrenal nodule. Kidneys and ureters: No hydronephrosis. No renal cystic lesion which requires follow up. No solid mas s. Bowel and peritoneum: The distal esophagus, stomach and small bowel bowel have normal caliber. There is a left mid abdomen colostomy. Prior left hemicolectomy and left colostomy. No presacral soft tissu e thickening. Lymph nodes: No central or retroperitoneal adenopathy. Vessels: The aorta has a normal caliber. There are diffuse atherosclerotic calcifications. PELVIS Reproductive organs: The prostate gland is enlarged with multiple radioactive seeds. Bladder: No abnormal wall thickening, accounting for underdistension. Pelvic lymph nodes: No pelvic adenopathy by size criteria. Bones: No aggressive osseous abnormality. Disc space narrowing at L2-3. Other: No significant ventral or inguinal hernia. IMPRESSION: 1. Status post left hemicolectomy and left colostomy for rectal cancer. 2. No evidence of local recurrence or metastatic disease. Reviewed by: Eligio Thomas on 04/08/2023 3:10 PM PDT Approved by: Eligio Thomas on 04/08/2023 3:10 PM PDT Station ID: [id number]
== END 2023-04-08 11:15 | disposition home or self-care (01) ==
LOC: DI 11:14
PROVIDERS: ATTEND Internal Medicine
DX: Z98.890 Other specified postprocedural states (principal); D72.820 Lymphocytosis (symptomatic); R33.9 Retention of urine, unspecified; D72.829 Elevated white blood cell count, unspecified; K22.2 Esophageal obstruction; Z90.49 Acquired absence of other specified parts of digestive tract
CPT/HCPCS: 74177; Q9967

== ENCOUNTER 2023-04-10 09:34 | Outpatient (CLI) | payer MEDICARE, OTHER | END 2023-04-10 09:35 | disposition home or self-care (01) | LOC: LAB.S 09:34 | PROVIDERS: ATTEND Internal Medicine | DX: D72.829 Elevated white blood cell count, unspecified (principal) | CPT/HCPCS: 36415; 82607; 82746; 88184; 88185; 88189 ==

== ENCOUNTER 2023-04-26 09:27 | Outpatient (CLI) | payer MEDICARE, OTHER | END 2023-04-26 09:28 | disposition home or self-care (01) | LOC: LAB.S 09:27 | PROVIDERS: ATTEND Urology | DX: N32.9 Bladder disorder, unspecified (principal); R35.0 Frequency of micturition | CPT/HCPCS: 87086 ==

== ENCOUNTER 2023-05-21 09:56 | Outpatient (CLI) | payer MEDICARE, OTHER | END 2023-05-21 09:57 | disposition home or self-care (01) | LOC: LAB.S 09:56 | PROVIDERS: ATTEND Urology | DX: N32.9 Bladder disorder, unspecified (principal); R35.0 Frequency of micturition | CPT/HCPCS: 87086 ==

== ENCOUNTER 2023-07-10 14:48 | Outpatient (CLI) | payer MEDICARE, OTHER ==
--- NOTE | 2023-07-10 17:24 | XRAY Report ---
PROCEDURE: Chest 2V INDICATIONS: DYSPNEA TECHNIQUE: 2 views of the chest were acquired. COMPARISON: 03/08/2023. FINDINGS: Surgical changes and devices: Median sternotomy wires and surgical clips are seen.. Lungs and pleura: No pleural effusions or pneumothorax. Lungs are clear. Mediastinum: Mediastinal contours appear normal. Heart size is normal. Bones and chest wall: No suspicious bony lesions. Overlying soft tissues appear unremarkable. IMPRESSION: No acute cardiopulmonary process. Reviewed by: Jez Zamudio MD on 07/10/2023 5:23 PM PST Approved by: Jez Zamudio MD on 07/10/2023 5:23 PM PST Station ID: [id number]
[2023-07-10 19:46] LABS: BASOPHILS # (AUTO) 0.1 10^3/uL (0.0-0.1); BASOPHILS % (AUTO) 0.4 %; EOSINOPHILS # (AUTO) 0.2 10^3/uL (0.0-0.7); EOSINOPHILS % (AUTO) 0.9 %; HCT - HEMATOCRIT 33.2 % (42.0-52.0); HGB - HEMOGLOBIN 10.7 g/dL (14.0-18.0); LYMPHOCYTES # (AUTO) 17.2 10^3/uL (1.5-3.5); LYMPHOCYTES % (AUTO) 68.8 %; MEAN CORPUSCULAR HEMOGLOBIN 32.2 pg (27.0-31.0); MEAN CORPUSCULAR HGB CONC 32.2 g/dL (32.0-36.0); MEAN PLATELET VOLUME 9.9 fL (7.4-11.4); MONOCYTES # (AUTO) 2.3 10^3/uL (0.0-1.0); MONOCYTES % (AUTO) 9.3 %; NEUTROPHILS # (AUTO) 5.1 10^3/uL (1.5-6.6); NEUTROPHILS % (AUTO) 20.4 %; NRBC ABSOLUTE COUNT (AUTO) 0.05 x10^3/uL; NUCLEATED RED BLOOD CELLS AUTO 0.2 /100WBC; PLT - PLATELET COUNT 193 10^3/uL (130-450); RED BLOOD COUNT 3.32 10^6/uL (4.70-6.10); RED CELL DISTRIBUTION WIDTH 18.6 % (12.0-15.0)
[2023-07-10 19:51] LABS: SLIDE REVIEW? Indicated
[2023-07-10 20:12] LABS: ALBUMIN 3.9 g/dL (3.2-5.5); ALBUMIN/GLOBULIN RATIO 1.3 (1.0-2.2); BILIRUBIN,TOTAL 0.9 mg/dL (0.2-1.0); CALCIUM 9.3 mg/dL (8.5-10.3); CREATININE 0.9 mg/dL (0.6-1.3); POTASSIUM 4.6 mmol/L (3.5-4.5); TOTAL PROTEIN 6.9 g/dL (6.4-8.9)
[2023-07-10 20:46] LABS: DIFFERENTIAL COMMENT MANUAL=AUTO DIFF; PLATELET ESTIMATE, MANUAL NORMAL (130-450,000) (NORMAL); PLATELET MORPHOLOGY NORMAL APPEARANCE (NORMAL); WBC MORPHOLOGY (MULTIPLE) 1+ SMUDGE CELLS (NORMAL)
[2023-07-10 20:53] LABS: FERRITIN 190.5 ng/mL (23.9-336.2)
[2023-07-10 20:54] LABS: THYROID STIMULATING HORMONE 5.01 uIU/mL (0.34-5.60)
== END 2023-07-10 14:49 | disposition home or self-care (01) ==
LOC: LAB.S 14:48 → DI.S 14:49
PROVIDERS: ATTEND Internal Medicine
DX: R53.83 Other fatigue (principal); R06.00 Dyspnea, unspecified; I69.391 Dysphagia following cerebral infarction
CPT/HCPCS: 36415; 80053; 82728; 83540; 84443; 84466; 85025

== ENCOUNTER 2023-07-12 10:37 | Outpatient (CLI) | payer MEDICARE, OTHER | END 2023-07-12 10:38 | disposition home or self-care (01) | LOC: LAB.S 10:37 | PROVIDERS: ATTEND Internal Medicine | DX: D64.9 Anemia, unspecified (principal); C91.10 Chronic lymphocytic leukemia of B-cell type not having achieved remission | CPT/HCPCS: 36415; 82248; 83010; 83615 ==

== ENCOUNTER 2023-07-29 08:00 | Outpatient (CLI) | payer MEDICARE, OTHER ==
--- NOTE | 2023-07-29 17:45 | XRAY Report ---
PROCEDURE: Chest 2V INDICATIONS: ACUTE COUGH TECHNIQUE: 2 views of the chest were acquired. COMPARISON: Chest radiograph on July 10, 2023. FINDINGS: Surgical changes and devices: Postsurgical changes in the mediastinum. Intact sternotomy wires. Lungs and pleura: No pleural effusions or pneumothorax. Mild diffuse interstitial prominence. Subtle right lower lobe patchy consolidation, best seen on lateral view. Mediastinum: Mediastinal contours appear normal. Heart size is normal. Bones and chest wall: No suspicious bony lesions. Overlying soft tissues appear unremarkable. IMPRESSION: 1.Mild diffuse interstitial prominence which may reflect early pulmonary edema. 2.Subtle right lower lobe patchy consolidation may reflect superimposed atelectasis, aspiration and/o r pneumonia. Reviewed by: Jazmine Shepard MD on 07/29/2023 5:44 PM PST Approved by: Jazmine Shepard MD on 07/29/2023 5:44 PM PST Station ID: [id number]
== END 2023-07-29 23:59 | disposition home or self-care (01) ==
LOC: DI.S 08:00
PROVIDERS: ATTEND Registered Nurse
DX: R05.1 Acute cough (principal); R53.83 Other fatigue; R91.8 Other nonspecific abnormal finding of lung field

== ENCOUNTER 2023-08-05 08:00 | Outpatient (CLI) | payer MEDICARE, OTHER ==
--- NOTE | 2023-08-05 15:25 | XRAY Report ---
PROCEDURE: Chest 2V INDICATIONS: ACUTE COUGH TECHNIQUE: 2 views of the chest were acquired. COMPARISON: Chest 07/10/2023. FINDINGS: Surgical changes and devices: Median sternotomy wires and mediastinal surgical clips.. Lungs and pleura: No pleural effusions or pneumothorax. Lungs are clear. Mediastinum: Mediastinal contours appear normal. Heart size is normal. Bones and chest wall: No suspicious bony lesions. Overlying soft tissues appear unremarkable. IMPRESSION: No acute cardiopulmonary process. Reviewed by: Maite Mason MD on 08/05/2023 3:23 PM PST Approved by: Maite Mason MD on 08/05/2023 3:23 PM PST Station ID: [id number]
== END 2023-08-05 23:59 | disposition home or self-care (01) ==
LOC: DI.S 08:00
PROVIDERS: ATTEND Emergency Medicine
DX: R05.1 Acute cough (principal)

== ENCOUNTER 2023-09-19 08:00 | Outpatient (CLI) | payer MEDICARE, OTHER | END 2023-09-19 08:01 | disposition home or self-care (01) | LOC: LAB.S 08:00 | PROVIDERS: ATTEND Nurse Practitioner | DX: R05.8 Other specified cough (principal) ==

== ENCOUNTER 2023-09-23 08:00 | Outpatient (CLI) | payer MEDICARE, OTHER ==
--- NOTE | 2023-09-23 10:07 | XRAY Report ---
PROCEDURE: Chest 2V INDICATIONS: PRODUCTIVE COUGH TECHNIQUE: 2 views of the chest were acquired. COMPARISON: 08/05/2023, 07/10/2023. FINDINGS: Surgical changes and devices: CABG. Lungs and pleura: No pleural effusions or pneumothorax. Lungs are clear. Mediastinum: Mediastinal contours appear normal. Heart size is normal. Bones and chest wall: No suspicious bony lesions. Overlying soft tissues appear unremarkable. IMPRESSION: No acute cardiopulmonary process. Reviewed by: Tony Colon MD on 09/23/2023 10:06 AM PDT Approved by: Tony Colon MD on 09/23/2023 10:06 AM PDT Station ID: [id number]
== END 2023-09-23 23:59 | disposition home or self-care (01) ==
LOC: DI.S 08:00
PROVIDERS: ATTEND Registered Nurse
DX: R05.8 Other specified cough (principal); R06.2 Wheezing

== ENCOUNTER 2023-10-31 11:40 | Outpatient (CLI) | payer MEDICARE, OTHER ==
--- NOTE | 2023-10-31 13:51 | XRAY Report ---
PROCEDURE: Sinus 3+V INDICATIONS: POSTERIOR RHINORRHEA TECHNIQUE: 3 views of the sinuses were acquired. COMPARISON: None. FINDINGS: Sinuses: The visualized sinuses demonstrate no air-fluid levels or mucosal thickening. The visualiz ed mastoids also appear clear. Bones: No suspicious bony lesions. Nasal septum is midline. IMPRESSION: No air-fluid levels to suggest acute sinusitis. Reviewed by: John Gan MD on 10/31/2023 1:50 PM PDT Approved by: John Gan MD on 10/31/2023 1:50 PM PDT Station ID: [id number]
[2023-10-31 15:23] LABS: BASOPHILS # (AUTO) 0.1 10^3/uL (0.0-0.1); BASOPHILS % (AUTO) 0.4 %; EOSINOPHILS # (AUTO) 0.4 10^3/uL (0.0-0.7); EOSINOPHILS % (AUTO) 1.3 %; LYMPHOCYTES # (AUTO) 20.9 10^3/uL (1.5-3.5); LYMPHOCYTES % (AUTO) 77.8 %; MEAN CORPUSCULAR HEMOGLOBIN 31.9 pg (27.0-31.0); MEAN CORPUSCULAR HGB CONC 32.4 g/dL (32.0-36.0); MEAN CORPUSCULAR VOLUME 98.6 fL (80.0-94.0); MEAN PLATELET VOLUME 11.1 fL (7.4-11.4); MONOCYTES # (AUTO) 0.9 10^3/uL (0.0-1.0); MONOCYTES % (AUTO) 3.5 %; NEUTROPHILS # (AUTO) 4.5 10^3/uL (1.5-6.6); NEUTROPHILS % (AUTO) 16.7 %; NRBC ABSOLUTE COUNT (AUTO) 0.04 x10^3/uL; NUCLEATED RED BLOOD CELLS AUTO 0.1 /100WBC; PLT - PLATELET COUNT 191 10^3/uL (130-450); RED BLOOD COUNT 3.45 10^6/uL (4.70-6.10); RED CELL DISTRIBUTION WIDTH 19.5 % (12.0-15.0); WHITE BLOOD COUNT 26.8 x10^3/uL (4.8-10.8)
[2023-10-31 15:28] LABS: SLIDE REVIEW? Indicated
[2023-10-31 16:25] LABS: DIFFERENTIAL COMMENT MANUAL=AUTO DIFF; PLATELET ESTIMATE, MANUAL NORMAL (130-450,000) (NORMAL); PLATELET MORPHOLOGY NORMAL APP (NORMAL); WBC MORPHOLOGY (MULTIPLE) 1+ SMUDGE CELLS (NORMAL)
== END 2023-10-31 11:41 | disposition home or self-care (01) ==
LOC: DI.S 11:40
PROVIDERS: ATTEND Internal Medicine
DX: R09.82 Postnasal drip (principal); C91.10 Chronic lymphocytic leukemia of B-cell type not having achieved remission
CPT/HCPCS: 36415; 85025

== ENCOUNTER 2025-05-16 04:35 | Inpatient (IN) ==
--- NOTE | 2025-05-16 04:43 | ED Physician Documentation ---
PD HPI ABD PAIN Stated complaint Stated Complaint: ABD PX Chief complaint Chief Complaint: Abd Pain History obtained from History obtained from: Patient and EMS History of Present Illness Timing - onset: How many hours ago (12-15) and Yesterday Timing - duration: Days (/2) Timing - details: Abrupt onset and Still present Quality: Cramping, Aching, Fullness/distended and Pain Location: All over / everywhere Improved by: Vomiting Worsened by: Moving and Palpation; No Breathing Associated symptoms: Nausea and Vomiting; No Fever or Diarrhea (He denies any output from his ostomy for the last 12 to 15 hours.) Meds/Allgy Home Medications Ambulatory Orders Medication Instructions Recorded Confirmed atorvastatin 40 mg tablet 40 mg PO HS 02/13/23 5 omega-3 fatty acids 1,000 mg 1,000 mg PO DAILY 3 05/16/25 capsule aspirin 81 mg tablet,delayed 81 mg PO QDAY 05/12/24 release (Adult Low Dose Aspirin) pantoprazole 40 mg granules 40 mg PO DAILY #60 ea 03/1705/16/25 delayed-release for susp in packet Allergies Allergies Allergy/AdvReac Type Severity Reaction Status Date / Time No Known Drug Allergies Allergy Verified 04/26/25 14:17 PFSH Active Problems All Active Problems (Updated 05/16/25 @ 10:54 by Naseem Moreau MD) Chronic lymphocytic leukemia (Acute) CLL (chronic lymphocytic leukemia) (Acute) CAD (coronary artery disease) (Acute) Colostomy in place (Acute) Acute generalized abdominal pain (Acute) Nausea and vomiting (Acute) SBO (small bowel obstruction) (Acute) Nasal polyp (Acute) Weight loss, non-intentional (Acute) Shortness of breath (Chronic) Balance disorder (Chronic) 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 Chase ELLISONJ dilated 17 -> 20mm History of colostomy Family History Family History Mother No problems noted. Father No problems noted. Social History Social History Smoking Status: Former smoker If you are a former smoker, when did you quit? (Date/Year): 1966 Do you feel safe in your home environment?: Yes History of physical, verbal, emotional, or financial abuse?: No ETOH Use: None Substance Use: denies use Exam Exam Vital Signs: Vital Signs x48h Temp Pulse Resp BP Pulse Ox 05/16/25 09:03 77 20 115/97 H 96 05/16/25 07:15 73 20 177/75 H 96 05/16/25 05:16 73 18 161/106 H 98 05/16/25 04:42 36.7 C 78 17 181/101 H 100 Constitutional normal general appearance, distress noted (moderate) (emesis bag in hand, in pain from abd. ) and abnormal body habitus (thin) and (underweight) HENMT oral mucous membranes abnormal (dry) Hearing aids in place. Neck/C-Spine supple Lymph no lymphadenopathy noted Respiratory normal respiratory effort and clear to auscultation bilaterally Cardiovascular normal heart rate noted, regular rhythm noted and no edema Gastrointestinal tender to palpation (moderate), (epigastric) and (periumbilical), abnormal bowel sounds noted (hyperactive bowel sounds) and no masses Colostomy bag in place left lower abdomen without any output. Genitourinary no CVA tenderness Psychiatry mental status grossly normal, oriented x3, thought process normal and affect normal Skin skin color normal Results Vitals Vitals: Vital Signs - 24 hr 05/16/25 04:42 05/16/25 05:16 05/16/25 05:20 Temperature 36.7 C Temperature Source Tympanic Pulse Rate 78 73 Respiratory Rate 17 18 Blood Pressure 181/101 H 161/106 H O2 Saturation 100 98 O2 Source Room air Room air Pain Intensity 10 10 11/30/25 07:15 05/16/25 07:17 05/16/25 09:03 Temperature Temperature Source Pulse Rate 73 77 Respiratory Rate 20 20 Blood Pressure 177/75 H 115/97 H O2 Saturation 96 96 O2 Source Room air Room air Pain Intensity 0 0 0 Oxygen O2 Source Room air Labs Labs: Laboratory Tests 05/16/25 05/16/25 05/16/25 05:09 05:09 05:09 WBC 55.3 H* RBC 3.00 L Hgb 10.0 L Hct 32.0 L MCV 106.7 H MCH 33.3 H MCHC 31.3 L RDW 19.9 H Plt Count 119 L MPV 12.2 H Neut # (Auto) Not Reportable Lymph # (Auto) Not Reportable [place] # (Auto) Not Reportable Eos # (Auto) Not Reportable Baso # (Auto) Not Reportable Absolute Nucleated RBC Not Reportable Band Neuts % (Manual) Not Reportable Abnorm Lymph % (Manual) Not Reportable Nucleated RBC % Not Reportable Neutrophils # (Manual) Not Reportable Lymphocytes # (Manual) Not Reportable Monocytes # (Manual) Not Reportable Eosinophils # (Manual) Not Reportable Basophils # (Manual) Not Reportable Differential Comment MANUA WBC Morphology 3+ SMUDGE Platelet Estimate DECREASED (<130,000) RBC Morph Micro Appear 1+ MACROCYTOSIS 1+ ACANTHOCYTES 1+ ANISOCYTOSIS Sodium 139 Potassium 4.3 Chloride 100 L Carbon Dioxide 31 Anion Gap 8.0 BUN 21 H Creatinine 0.9 Estimated GFR (MDRD) 79 L Glucose 99 Calcium 10.6 H Total Bilirubin 1.5 H AST 36 ALT 25 Alkaline Phosphatase 64 Total Protein 6.3 L Albumin 4.2 Globulin 2.1 Albumin/Globulin Ratio 2.0 Lipase 36 Urine Color Urine Clarity Urine pH Ur Specific [place] Urine Protein Urine Glucose (UA) Urine Ketones Urine Occult Blood Urine Nitrite Urine Bilirubin Urine Urobilinogen Ur Leukocyte Esterase Ur Microscopic Review Urine Culture Comments 05/16/25 08:55 WBC RBC Hgb Hct MCV MCH MCHC RDW Plt Count MPV Neut # (Auto) Lymph # (Auto) [place] # (Auto) Eos # (Auto) Baso # (Auto) Absolute Nucleated RBC Band Neuts % (Manual) Abnorm Lymph % (Manual) Nucleated RBC % Neutrophils # (Manual) Lymphocytes # (Manual) Monocytes # (Manual) Eosinophils # (Manual) Basophils # (Manual) Differential Comment WBC Morphology Platelet Estimate RBC Morph Micro Appear Sodium Potassium Chloride Carbon Dioxide Anion Gap BUN Creatinine Estimated GFR (MDRD) Glucose Calcium Total Bilirubin AST ALT Alkaline Phosphatase Total Protein Albumin Globulin Albumin/Globulin Ratio Lipase Urine Color YELLOW Urine Clarity CLEAR Urine pH 5.0 Ur Specific [place] <=1.005 Urine Protein TRACE Urine Glucose (UA) NEGATIVE Urine Ketones >=80 H Urine Occult Blood NEGATIVE Urine Nitrite NEGATIVE Urine Bilirubin NEGATIVE Urine Urobilinogen 1 Ur Leukocyte Esterase NEGATIVE Ur Microscopic Review NOT INDICATED Urine Culture Comments NOT INDICATED Rads (name of study) ABD/PEL CT: Relevant Findings:: Final report received and EMP independent interpretation of test (apparent SBO.) Interpretation: EXAM: [id number] CT/ABPEW ([id number]) PROCEDURE: CT Abdomen/Pelvis W INDICATIONS: Abdominal pain, acute, nonlocalized CONTRAST: 100 ML OMNI 300 TECHNIQUE: After the administration of intravenous contrast, a CT scan of the abdomen and pelvis was performed. Images were recorded and evaluated at appropriate window settings. Reformats: coronal and sagittal. For radiation dose reduction, the following was used: automated exposure control, adjustment of mA and/or kV according to patient size. COMPARISON: 04/08/2023, 02/13/2023 FINDINGS: Image quality: Diagnostic. Lower chest: There are sternotomy wires and mediastinal clips. A small hiatal hernia is incidentally noted. Liver: No solid mass. Gallbladder: Within normal limits. Biliary tree: No intrahepatic or extrahepatic dilation, accounting for age. Spleen: No splenomegaly. Pancreas: No pancreatic ductal dilation. Adrenals: No adrenal nodule. Kidneys and ureters: No hydronephrosis. No renal cystic lesion which requires follow up. No solid mass. Stomach, bowel and peritoneum: A few dilated loops of small bowel can be seen, measuring up to 3 cm. There is a transition point seen within the anterior mid abdomen, as on series 2 image 91 and on series 4 image 19. The stomach is distended with fluid. Distal colectomy can be seen, with a left lower quadrant colostomy. Lymph nodes: No central or retroperitoneal adenopathy. Vessels: No infrarenal aortic aneurysm. Patent portal vein. Atherosclerotic calcification is seen. PELVIS Reproductive organs: Prostate seed implants are seen. Bladder: No abnormal wall thickening. Pelvic lymph nodes: No pelvic adenopathy by size criteria. Bones: No aggressive osseous abnormality. Scoliotic curvature is seen. Age-appropriate degenerative changes are seen. Other: No significant ventral or inguinal hernia. IMPRESSION: Small bowel obstruction, with a transition point seen within the anterior mid abdomen. The stomach is distended with fluid. Additional findings: Small hiatal hernia Distal colectomy, with a left lower quadrant colostomy. Prostate seed implants. Note: Case discussed by telephone with Dr. Moreau at 7:42 a.m. pac[place] time on 05/16/2025. Reviewed by: Benny Leon MD on 05/16/2025 6:42 AM [place] [address] Medical Decision Making ED course Complexity details: reviewed results (CT c/w SBO. CBC showing his CLL.), re- evaluated patient (more comfortable with FLuids, Zofran, Toradol.. ), considered differential (concerning for SBO with abd pain/vomiting and no output from ostomy.) and d/w patient ED course: This is a very pleasant 89-year-old gentleman with a remote history of rectal cancer and subsequent colostomy that he has had for years. Typically no problems from it. He has noticed some fullness in cramping pain in the upper abdomen associated with nausea and vomiting and no output from the ostomy starting approximately 12 to 15 hours ago. He states the output had been good recently. No cold or flu type symptoms.The patient presents appearing in discomfort. He is tender in the mid to upper abdomen in particular. There ostomy bag is empty and he states it was changed over 12 hours ago. He is holding an emesis bag with some emesis of gastric fluid. No noted blood. He is alert and conversant. He is given IV fluids and medication for nausea and pain of Dilaudid and Zofran. He had labs obtained. Does have a history of CLL and his white count is significantly elevated at 55,000 with most recent ones being 33 and 26,000. Otherwise his hemoglobin is moderately anemic at 10.0. This is close to baseline however. His creatinine is 0.9 with a BUN of 21. Glucose of 99. We did do a CT scan of his abdomen with contrast. To my eye it looks like a small bowel obstruction but awaiting radiology report. I did discuss this with the patient. Discharge Plan Discharge Patient Disposition: 66 [facility] DC/Xfer Condition: Stable Clinical Impression: SBO (small bowel obstruction), Nausea and vomiting, Acute generalized abdominal pain, Colostomy in place, Chronic lymphocytic leukemia Interventions: ED Admission Assessment Last Done: 05/16/25 10:24 Vitals documented within 30 minutes of discharge?: Yes
[2025-05-16] MEDS: SODIUM CHLORIDE 0.9% 1,000 ML IV STA (05:20)
[2025-05-16] MEDS: HYDROmorphone 1 MG/ML CARPUJECT IVP STA (05:20)
[2025-05-16] MEDS: ONDANSETRON 4 MG/2 ML VIAL IVP STA ×2 (05:20→07:24)
[2025-05-16 05:24] LABS: HCT - HEMATOCRIT 32.0 % (42.0-52.0); HGB - HEMOGLOBIN 10.0 g/dL (14.0-18.0); MEAN PLATELET VOLUME 12.2 fL (7.4-11.4); PLT - PLATELET COUNT 119 10^3/uL (130-450); RED CELL DISTRIBUTION WIDTH 19.9 % (12.0-15.0)
[2025-05-16 05:45] LABS: ALT ALANINE AMINOTRANSFERASE 25.0 IU/L (10-60); AST ASPARTATE AMINOTRANSFERASE 36.0 IU/L (10-42); BUN - BLOOD UREA NITROGEN 21.0 mg/dL (6-20); CARBON DIOXIDE - CO2 31.0 mmol/L (21-32); CREATININE 0.9 mg/dL (0.6-1.3); GFR - MDRD 79.0 (>89)
--- OUTSIDE RECORDS SUMMARY | 2025-05-16 06:03 | EXTERNAL MEDICAL SUMMARY RPT | Continuity of Care Document ---
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 [facility] 2025-04-26 07:51 Chronic lymphocytic leukemia of B-cell type not having achieved remission [facility] 2025-04-26 09:23 Chronic lymphocytic leukemia of B-cell type not having achieved remission [facility] 2025-04-26 14:17 Chronic lymphocytic leukemia of B-cell type not having achieved remission [facility] 2025-04-30 11:55 Abnormal weight loss [facility] 2025-04-30 11:55 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 [facility] 2025-05-01 00:05 Abnormal weight loss [facility] 2025-05-01 00:05 Other correction (current) drug therapy [facility] 2025-05-04 10:48 Chronic lymphocytic leukemia of B-cell type not having achieved remission [facility] 2025-05-04 10:50 Chronic lymphocytic leukemia of B-cell type not having achieved remission [facility] 2025-05-04 10:55 Abnormal weight loss [facility] 2025-05-04 13:53 Chronic lymphocytic leukemia of B-cell type not having achieved remission [facility] 2025-05-05 00:05 Chronic lymphocytic leukemia of B-cell type not having achieved remission [facility] 2025-05-10 09:23 Dysphagia, unspecified [facility] Results/Labs test date facility value unit notes Result panel 1 FREE T4 (FREE THYROXINE) 2025-04-30 10:38 [facility] 1.06 ng/dl Biotin at >10 ng/mL concentration may cause significant interference. VITAMIN B12 2025-04-30 10:38 [facility] 2591 pg/ml VITAMIN B12 RANGES: NORMAL 180 - 914 INDETERMINATE 145 -180 DEFICIENT < 145 THYROID STIMULATING HORMONE 2025-04-30 10:38 [facility] 7.52 uiu/ml (missing) Result panel 2 BASOPHILS # (MANUAL) 2025-05-04 10:50 [facility] 0.0 10 3/ul (missing) EOSINOPHILS # (MANUAL) 2025-05-04 10:50 [facility] 0.3 10 3/ul (missing) CREATININE 2025-05-04 10:50 [facility] 0.9 mg/dl As of December 2022 testing method has changed, this may include reference ranges. RBC MORPHOLOGY (MULTIPLE) 2025-05-04 10:50 [facility] 1+ ACANTHOCYTES (missing ) (missing) RBC MORPHOLOGY (MULTIPLE) 2025-05-04 10:50 [facility] 1+ ANISOCYTOSIS (missing ) (missing) RBC MORPHOLOGY (MULTIPLE) 2025-05-04 10:50 [facility] 1+ MACROCYTOSIS (missing ) (missing) MONOCYTES # (MANUAL) 2025-05-04 10:50 [facility] 1.0 10 3/ul (missing) BILIRUBIN,TOTAL 2025-05-04 10:50 [facility] 1.0 mg/dl As of December 2022 testing method has changed, this may include reference ranges. ALBUMIN/GLOBULIN RATIO 2025-05-04 10:50 [facility] 1.6 (missing ) (missing) CALCIUM 2025-05-04 10:50 [facility] 10.1 mg/dl As of December 2022 testing method has changed, this may include reference ranges. NEUTROPHILS # (MANUAL) 2025-05-04 10:50 [facility] 10.7 10 3/ul (missing) TOTAL CELLS COUNTED 2025-05-04 10:50 [facility] 100 (missing ) (missing) MEAN CORPUSCULAR VOLUME 2025-05-04 10:50 [facility] 107.3 fl (missing) CHLORIDE 2025-05-04 10:50 [facility] 108 mmol/l As of December 2022 testing method has changed, this may include reference ranges. PLT - PLATELET COUNT 2025-05-04 10:50 [facility] 116 10 3/ul (missing) MEAN PLATELET VOLUME 2025-05-04 10:50 [facility] 12.7 fl (missing) HGB - HEMOGLOBIN 2025-05-04 10:50 [facility] 14.1 g/dl (missing) SODIUM 2025-05-04 10:50 [facility] 143 mmol/l Unknown GLUCOSE 2025-05-04 10:50 [facility] 149 mg/dl As of December 2022 testing method has changed, this may include reference ranges. ABNORMAL LYMPHS % (MANUAL) 2025-05-04 10:50 [facility] 18 % (missing) LDH - LACTATE DEHYDROGENASE 2025-05-04 10:50 [facility] 189 iu/l As of December 2022 testing method has changed, this may include reference ranges. RED CELL DISTRIBUTION WIDTH 2025-05-04 10:50 [facility] 19.9 % (missing) METAMYELOCYTES % (MANUAL) 2025-05-04 10:50 [facility] 2 % (missing) GLOBULIN 2025-05-04 10:50 [facility] 2.7 g/dl (missing) LYMPHOCYTES # (MANUAL) 2025-05-04 10:50 [facility] 20.6 10 3/ul (missing) WBC MORPHOLOGY (MULTIPLE) 2025-05-04 10:50 [facility] 3+ SMUDGE CELLS (missing ) (missing) RED BLOOD COUNT 2025-05-04 10:50 [facility] 3.98 10 6/ul (missing) BUN - BLOOD UREA NITROGEN 2025-05-04 10:50 [facility] 30 mg/dl As of December 2022 testing method has changed, this may include reference ranges. CARBON DIOXIDE - CO2 2025-05-04 10:50 [facility] 30 mmol/l As of December 2022 testing method has changed, this may include reference ranges. MEAN CORPUSCULAR HGB CONC 2025-05-04 10:50 [facility] 33.0 g/dl (missing) WHITE BLOOD COUNT 2025-05-04 10:50 [facility] 33.3 x10 3/ul (missing) ALT ALANINE AMINOTRANSFERASE 2025-05-04 10:50 [facility] 35 iu/l As of December 2022 testing method has changed, this may include reference ranges. MEAN CORPUSCULAR HEMOGLOBIN 2025-05-04 10:50 [facility] 35.4 pg (missing) POTASSIUM 2025-05-04 10:50 [facility] 4.0 mmol/l As of December 2022 testing method has changed, this may include reference ranges. ALBUMIN 2025-05-04 10:50 [facility] 4.2 g/dl As of December 2022 testing method has changed, this may include reference ranges. HCT - HEMATOCRIT 2025-05-04 10:50 [facility] 42.7 % (missing) AST ASPARTATE AMINOTRANSFERASE 2025-05-04 10:50 [facility] 43 iu/l As of December 2022 testing method has changed, this may include reference ranges. BAND NEUTROPHILS % (MANUAL) 2025-05-04 10:50 [facility] 5 % (missing) ANION GAP 2025-05-04 10:50 [facility] 5.0 (missing ) (missing) TOTAL PROTEIN 2025-05-04 10:50 [facility] 6.9 g/dl As of December 2022 testing method has changed, this may include reference ranges. ALKALINE PHOSPHATASE 2025-05-04 10:50 [facility] 63 iu/l As of December 2022 testing method has changed, this may include reference ranges. HAPTOGLOBIN 2025-05-04 10:50 [facility] 68 mg/dl Performed at: - [facility] [address], [place], [place] [id number] Chief Deputy Coroner: Curly West MD, Phone: [phone] GFR - MDRD 2025-05-04 10:50 [facility] 79 (missing ) The IDMS-traceable MDRD Study Equation has been validated extensively in and populations between the ages of 18 and 70 with impaired kidney function (eGFR < 60 mL/min/1.73m2) and has shown good performance for patients with all common causes of kidney disease. Although this equation has not been validated for patients older than 70, an MDRD-derived eGFR may still be a useful tool for providers caring for patients older than 70. References: http://www.nkde p.nih.gov/lab-e valuation/gfr/c ematinmaricruz-thuy ardization, last updated August 2011. REACTIVE LYMPHS % (MANUAL) 2025-05-04 10:50 [facility] 8 % (missing) PLATELET ESTIMATE, MANUAL 2025-05-04 10:50 [facility] DECREASED (<130,000) (missing ) (missing) SLIDE REVIEW? 2025-05-04 10:50 [facility] Indicated (missing ) (missing) SLIDE SENT FOR PATH REVIEW? 2025-05-04 10:50 [facility] Indicated (missing ) (missing) DIFFERENTIAL COMMENT 2025-05-04 10:50 [facility] MANUAL DIFFERENTIAL (missing ) (missing) PLATELET MORPHOLOGY 2025-05-04 10:50 [facility] NORMAL APPEARANCE (missing ) (missing) Result panel 3 ANTIBODY SCREEN 3 CELL 2025-05-04 10:55 [facility] NEGAT SISI (missing) (missing) Result panel 4 PATHOLOGIST SLIDE COMMENTS 2025-05-04 21:45 [facility] SEE SEPARATE REPORT (missing) 05-04-25 [id number] [facility] Report faxed to the ordering physician and scanned to the patient's EMR. Pathologist Slide Review Performed At: [facility], [address], [address] [place] [address] CLIA# [id number] Result panel 5 CREATININE 2025-05-16 05:09 [facility] 0.9 mg/dl As of December 2022 testing method has changed, this may include reference ranges. BILIRUBIN,TOTAL 2025-05-16 05:09 [facility] 1.5 mg/dl As of December 2022 testing method has changed, this may include reference ranges. HGB - HEMOGLOBIN 2025-05-16 05:09 [facility] 10.0 g/dl (missing) CALCIUM 2025-05-16 05:09 [facility] 10.6 mg/dl As of December 2022 testing method has changed, this may include reference ranges. CHLORIDE 2025-05-16 05:09 [facility] 100 mmol/l As of December 2022 testing method has changed, this may include reference ranges. MEAN CORPUSCULAR VOLUME 2025-05-16 05:09 [facility] 106.7 fl (missing) PLT - PLATELET COUNT 2025-05-16 05:09 [facility] 119 10 3/ul (missing) MEAN PLATELET VOLUME 2025-05-16 05:09 [facility] 12.2 fl (missing) SODIUM 2025-05-16 05:09 [facility] 139 mmol/l (missing) RED CELL DISTRIBUTION WIDTH 2025-05-16 05:09 [facility] 19.9 % (missing) ALBUMIN/GLOBULIN RATIO 2025-05-16 05:09 [facility] 2.0 (missing) (missing) GLOBULIN 2025-05-16 05:09 [facility] 2.1 g/dl (missing) BUN - BLOOD UREA NITROGEN 2025-05-16 05:09 [facility] 21 mg/dl As of December 2022 testing method has changed, this may include reference ranges. ALT ALANINE AMINOTRANSFERASE 2025-05-16 05:09 [facility] 25 iu/l As of December 2022 testing method has changed, this may include reference ranges. RED BLOOD COUNT 2025-05-16 05:09 [facility] 3.00 10 6/ul (missing) CARBON DIOXIDE - CO2 2025-05-16 05:09 [facility] 31 mmol/l As of December 2022 testing method has changed, this may include reference ranges. MEAN CORPUSCULAR HGB CONC 2025-05-16 05:09 [facility] 31.3 g/dl (missing) HCT - HEMATOCRIT 2025-05-16 05:09 [facility] 32.0 % (missing) MEAN CORPUSCULAR HEMOGLOBIN 2025-05-16 05:09 [facility] 33.3 pg (missing) AST ASPARTATE AMINOTRANSFERASE 2025-05-16 05:09 [facility] 36 iu/l As of December 2022 testing method has changed, this may include reference ranges. LIPASE 2025-05-16 05:09 [facility] 36 u/l As of December 2022 testing method has changed, this may include reference ranges. ALBUMIN 2025-05-16 05:09 [facility] 4.2 g/dl As of December 2022 testing method has changed, this may include reference ranges. POTASSIUM 2025-05-16 05:09 [facility] 4.3 mmol/l As of December 2022 testing method has changed, this may include reference ranges. WHITE BLOOD COUNT 2025-05-16 05:09 [facility] 55.3 x10 3/ul Called to [facility] RN by Gisell Li MLT([facility]) at 0533 05/16/25. Read back(Y/N)? Y TOTAL PROTEIN 2025-05-16 05:09 [facility] 6.3 g/dl As of December 2022 testing method has changed, this may include reference ranges. ALKALINE PHOSPHATASE 2025-05-16 05:09 [facility] 64 iu/l As of December 2022 testing method has changed, this may include reference ranges. GFR - MDRD 2025-05-16 05:09 [facility] 79 (missing) The IDMS-traceable MDRD Study Equation has been validated extensively in and populations between the ages of 18 and 70 with impaired kidney function (eGFR < 60 mL/min/1.73m2) and has shown good performance for patients with all common causes of kidney disease. Although this equation has not been validated for patients older than 70, an MDRD-derived eGFR may still be a useful tool for providers caring for patients older than 70. References: http://www.nkdep. nih.gov/lab-evalu ation/gfr/creatin ine-stand ardization, last updated August 2011. ANION GAP 2025-05-16 05:09 [facility] 8.0 (missing) (missing) GLUCOSE 2025-05-16 05:09 [facility] 99 mg/dl As of December 2022 testing method has changed, this may include reference ranges. Social History date description facility
[2025-05-16 06:16] LABS: PLATELET ESTIMATE, MANUAL DECREASED (<130,000) (NORMAL)
--- NOTE | 2025-05-16 07:46 | CT Report ---
PROCEDURE: CT Abdomen/Pelvis W INDICATIONS: Abdominal pain, acute, nonlocalized CONTRAST: 100 ML OMNI 300 TECHNIQUE: After the administration of intravenous contrast, a CT scan of the abdomen and pelvis was performed. Images were recorded and evaluated at appropriate window settings. Reformats: coronal and sagittal. For radiation dose reduction, the following was used: automated exposure control, adjustment of mA and/or kV according to patient size. COMPARISON: 04/08/2023, 02/13/2023 FINDINGS: Image quality: Diagnostic. Lower chest: There are sternotomy wires and mediastinal clips. A small hiatal hernia is incidentally noted. Liver: No solid mass. Gallbladder: Within normal limits. Biliary tree: No intrahepatic or extrahepatic dilation, accounting for age. Spleen: No splenomegaly. Pancreas: No pancreatic ductal dilation. Adrenals: No adrenal nodule. Kidneys and ureters: No hydronephrosis. No renal cystic lesion which requires follow up. No solid mass. Stomach, bowel and peritoneum: A few dilated loops of small bowel can be seen, measuring up to 3 cm. There is a transition point seen within the anterior mid abdomen, as on series 2 image 91 and on series 4 image 19. The stomach is distended with fluid. Distal colectomy can be seen, with a left lower quadrant colostomy. Lymph nodes: No central or retroperitoneal adenopathy. Vessels: No infrarenal aortic aneurysm. Patent portal vein. Atherosclerotic calcification is seen. PELVIS Reproductive organs: Prostate seed implants are seen. Bladder: No abnormal wall thickening. Pelvic lymph nodes: No pelvic adenopathy by size criteria. Bones: No aggressive osseous abnormality. Scoliotic curvature is seen. Age-appropriate degenerative changes are seen. Other: No significant ventral or inguinal hernia. IMPRESSION: Small bowel obstruction, with a transition point seen within the anterior mid abdomen. The stomach is distended with fluid. Additional findings: Small hiatal hernia Distal colectomy, with a left lower quadrant colostomy. Prostate seed implants. Note: Case discussed by telephone with Dr. Moreau at 7:42 a.m. pacific time on 05/16/2025. Reviewed by: Benny Leon MD on 05/16/2025 6:42 AM [facility] Approved by: Benny Leon MD on 05/16/2025 6:42 AM [facility] Station ID: [id number]
--- NOTE | 2025-05-16 08:42 | ED Physician Documentation ---
ED Addendum Addendum Addendum: Patient handed off to me at [address] Naseem Moreau. Patient found to have a small bowel obstruction. I discussed his presentation with both surgery and hospitalist medicine who agreed to admit him to the medicine service for conservative management at this time. Surgery aware and following. Remained stable throughout his time in ER with no further interventions required on my behalf. Discharge Plan Discharge Patient Disposition: [facility] DC/Xfer Condition: Stable Clinical Impression: SBO (small bowel obstruction), Nausea and vomiting, Acute generalized abdominal pain, Colostomy in place Prescriptions: No Action atorvastatin 40 MG tablet 40 mg PO HS omega-3 fatty acids 1,000 MG capsule 1,000 mg PO DAILY pantoprazole [address] for susp in packet 40 mg PO DAILY Qty: 60 2RF aspirin [Adult Low Dose Aspirin] 81 mg tablet,delayed release (DR/EC) 81 mg PO QDAY Print Language: Faroese
[2025-05-16 09:19] LABS: OCCULT BLOOD,URINE NEGATIVE (NEGATIVE)
[2025-05-16 09:20] LABS: GLUCOSE, URINE (UA) NEGATIVE (NEGATIVE); KETONES,URINE (UA) >=80 mg/dL (NEGATIVE)
--- NOTE | 2025-05-16 09:35 | HISTORY & PHYSICAL EXAMINATION ---
Chief Complaint Chief Complaint Chief Complaint: Abdominal Pain History of Present Illness Admitted From Admitted From:: ED History Obtained From Records [facility]ed[facility] History obtained from: EMR, Patient, Spouse by phone History of Present Illness HPI Comment/Other: This is a very vibrant 89-year-old male with past medical history notable for prostate cancer, rectal cancer, colostomy in place, smoldering CLL, a prior CVA with resultant dysarthria, dysphagia, recent EGD for dilation for esophageal dysphagia, and an as of yet indeterminant nasal polyp who presents with acute onset abdominal pain on the morning of admission, found to have a small bowel obstruction. Colt is a limited historian due to the pain medications he has received. He is quite somnolent. He is not in as much pain as when he came in. He is also fairly dysarthric which his says has been getting worse over the last 2 weeks. Patient worsened pain on the evening prior to admission extreme pain in his mid epigastrium. His was concerned that this was due to a large thanksgiving meal 2 days ago. He has associated nausea and vomiting. His labs look well generally. Other than his white blood cell count. The patient is in surveillance regarding his CLL. His WBCs here have typically been in the 20- 30,000 range. He is found to be much higher this admission at 50,000. Unclear if this may be or acute reaction in setting of his abdominal pain and obstruction. He was found on CT abdomen pelvis to have evidence of a small bowel obstruction with transition point in the anterior mid abdomen. Distended stomach filled with fluid. He got more nauseous when he laid flat for the CT scan. His pain improved with pain medications in the ED He has a storied history. See ACP note from today. Patient is full code as of admit, further goals of care conversations ongoing and as details emerge. Meds/Allgy Home Medications Ambulatory Orders Medication Instructions Recorded Confirmed atorvastatin 40 mg tablet 40 mg PO HS 02/13/23 5 omega-3 fatty acids 1,000 mg 1,000 mg PO DAILY 3 05/16/25 capsule aspirin 81 mg tablet,delayed 81 mg PO QDAY 05/12/24 release (Adult Low Dose Aspirin) pantoprazole 40 mg granules 40 mg PO DAILY #60 ea 03/1705/16/25 delayed-release for susp in packet Allergies Allergies Allergy/AdvReac Type Severity Reaction Status Date / Time No Known Drug Allergies Allergy Verified 04/26/25 14:17 [facility] Active Problems All Active Problems (Updated 05/16/25 @ 10:54 by Naseem Moreau MD) Chronic lymphocytic leukemia (Acute) CLL (chronic lymphocytic leukemia) (Acute) CAD (coronary artery disease) (Acute) Colostomy in place (Acute) Acute generalized abdominal pain (Acute) Nausea and vomiting (Acute) SBO (small bowel obstruction) (Acute) Nasal polyp (Acute) Weight loss, non-intentional (Acute) Shortness of breath (Chronic) Balance disorder (Chronic) 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 Chase PALMA dilated 17 -> 20mm History of colostomy Family History Family History Mother No problems noted. Father No problems noted. Social History Social History Smoking Status: Former smoker If you are a former smoker, when did you quit? (Date/Year): 1966 Number of Years Smoked: 10 Do you dip or chew tobacco?: No Do you vape?: No Patient requests smoking cessation consult: No Initiate information on smoking cessation: No Level: Independent Home Mobility Equipment: Cane Do you feel safe in your home environment?: Yes History of physical, verbal, emotional, or financial abuse?: No ETOH Use: None Substance Use: denies use Exam Exam Vital Signs: Vital Signs x48h Temp Pulse Pulse Resp BP BP Pulse Ox 05/16/25 10:58 36.9 C 69 20 124/58 L 94 05/16/25 10:24 60 20 130/56 L 96 05/16/25 09:03 77 20 115/97 H 96 05/16/25 07:15 73 20 177/75 H 96 O2 Flow Rate 05/16/25 10:58 05/16/25 10:24 2 05/16/25 09:03 05/16/25 07:15 GEN: No acute distress. Appears stated age. HEENT: NC/AT, normal appearance of external ears and nose. Hearing baseline. Cardiac: Regular rate and rhythm, no murmurs. Euvolemic on exam Pulm: Lungs CTA bilaterally, no cough, no wheezes. No adventitial lung sounds. Normal effort on room air. Abdomen: Distended, tender. Audible bowel tones. Extremities: Moves all 4 extremities equally. Normal tone. Neuro: Face symmetric, CN II through XII intact grossly. Baseline dysarthric. No focal neurologic deficits. Psych: Mood euthymic with congruent affect. Good fund of knowledge. Judgment intact. Conclusion/Plan Problem List (1) SBO (small bowel obstruction): Plan: Patient presenting with acute abdominal pain, no clear transition point on his CTA. Lots of contents in his stomach. His pain is improved after pain meds in the ED. - Discussed with ED and with general surgery, will admit the patient to the medical service. Observation for now - Discussed with general surgery, plan as below - NGT placed, placed to suction - NPO - XR in AM, Sooner if he has ostomy output - Consideration for SBFT - Starting on D5 half-normal saline with KCl - Monitor BMP a.m. - Pain meds available parenterally, including parenteral Tylenol and hydromorphone 0.5mg (2) CLL (chronic lymphocytic leukemia): Plan: Patient with history of smoldering CLL. Not been considered for start of treatment at this point in time. He normally has a white blood cell count around 30,000. Up to 55,000 this hospitalization. Unclear if this is just reactive in the setting of his SBO. Associated thrombocytopenia, stable from earlier this month. Will trend CBC, if continues to worsen may need transfer to oncology - Family meeting today to set goals of care - CBC a.m. with differential (3) CAD (coronary artery disease): Plan: Remote history of CABG. His only home medications are aspirin and atorvastatin 40 mg Denies any chest pain or anginal equivalents at this time. - N.p.o. as above - Resume atorvastatin and aspirin once he is eating and drinking. (4) Colostomy in place: Plan: Patient with history of rectal cancer, has had stable colostomy for the better part of 20 years. No output in the setting of his SBO. - Continue to monitor for output return as above. (5) Dysarthria as late effect of cerebrovascular accident (CVA): Plan: Patient has had dysphagia and dysarthria. Dispo started around 2020 when he had a stroke. His dysphagia was more attributable to esophageal stricture and a Schatzki ring which was dilated last month. He swallowing better now. Of note he was functioning so well that his primary care doctor was considering a PEG tube if unable to be dilated. He has followed with speech therapy in the community. - Consider ST evaluation tomorrow - Will continue to monitor as we advance diet (6) History of prostate cancer: Plan: Status post brachytherapy. - Noted Plan Plan by problem as above I spent a total of 78 minutes in the care of this patient today. This time was spent reviewing labs, vital signs, imaging, interviewing and examining the patient, and discussing plan of care with them and their other care providers. Patient is presenting with an acute illness with threat to life or bodily function. Decision was made to admit the patient to the hospital under observation status as above. Case was discussed with general surgery and the ED as above.Treatment with parenteral controlled substances. [id number] Lab Results 05/16/25 05:09 05/16/25 05:09
--- NOTE | 2025-05-16 10:15 | CONSULTATION NOTE ---
Referring Provider Name of Referring Provider:: ED (Volodymyr) Consult Date: 05/16/25 Chief Complaint Chief Complaint Chief Complaint: I was having a lot of pain History of Present Illness Admitted From Admitted From:: ED History Obtained From Records Reviewed: yes History obtained from: patient, chart, ED provider, medicine team History of Present Illness HPI Comment/Other: This is a very pleasant 89y/o M who presents with acute onset abdominal pain that began at about 2200 last night and was sharp and constant in nature. It was diffuse but worst in the epigastric region and made worse with activity. His pain was associated with nausea but denies vomiting. The patient has noted no output from his ostomy (gas or stool) since the onset of his symptoms. His pain prompted him to come to the ED. In the ED, workup reveals a small bowel obstruction. For this, I am consulted. Colt is a limited historian due to recent pain medication and not getting much rest last night. He is more awake for me than he appears to have been earlier this morning. 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 He also has a history of rectal cancer s/p left colectomy with permanent end colostomy and radiation therapy, as well as prostate cancer s/p brachytherapy, CAD, s/p 4V CABG (follows with Dr. Robin), CVA with resultant dysarthria, and dysphagia and h/o Shatzki ring s/p dilation (most recently 03/2025). The patient was seen and examined in the emergency department. 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 Stone GEJ dilated 17 -> 20mm History of colostomy Family History Family History Mother No problems noted. Father No problems noted. Social History Social History Smoking Status: Former smoker If you are a former smoker, when did you quit? (Date/Year): 1966 Do you feel safe in your home environment?: Yes History of physical, verbal, emotional, or financial abuse?: No ETOH Use: None Substance Use: denies use Meds/Allgy Home Medications Ambulatory Orders Medication Instructions Recorded Confirmed atorvastatin 40 mg tablet 40 mg PO HS 02/13/23 5 omega-3 fatty acids 1,000 mg 1,000 mg PO DAILY 3 05/16/25 capsule aspirin 81 mg tablet,delayed 81 mg PO QDAY 05/12/24 release (Adult Low Dose Aspirin) pantoprazole 40 mg granules 40 mg PO DAILY #60 ea 03/1705/16/25 delayed-release for susp in packet Allergies Allergies Allergy/AdvReac Type Severity Reaction Status Date / Time No Known Drug Allergies Allergy Verified 04/26/25 14:17 Results Lab Results Lab results reviewed: Yes 05/16/25 05:09 05/16/25 05:09 Other Lab Results: Lab Results x24hrs 05/16/25 05/16/25 05/16/25 Range/Units 08:55 05:09 05:09 WBC (4.8-10.8) x10^3/uL RBC (4.70-6.10) 10^6/uL Hgb (14.0-18.0) g/dL Hct (42.0-52.0) % MCV (80.0-94.0) fL MCH (27.0-31.0) pg MCHC (32.0-36.0) g/dL RDW (12.0-15.0) % Plt Count (130-450) 10^3/uL MPV (7.4-11.4) fL Neut # (Auto) Lymph # (Auto) [place] # (Auto) Eos # (Auto) Baso # (Auto) Absolute Nucleated RBC Band Neuts % (Manual) Abnorm Lymph % (Manual) Nucleated RBC % Neutrophils # (Manual) Lymphocytes # (Manual) Monocytes # (Manual) Eosinophils # (Manual) Basophils # (Manual) Differential Comment WBC Morphology (NORMAL) Platelet Estimate (NORMAL) RBC Morph Micro Appear 1+ ANISOCYTOSIS 1+ ACANTHOCYTES (NORMAL) Sodium 139 (135-145) mmol/L Potassium 4.3 (3.5-4.5) mmol/L Chloride 100 L (101-111) mmol/L Carbon Dioxide 31 (21-32) mmol/L Anion Gap 8.0 (6-13) BUN 21 H (6-20) mg/dL Creatinine 0.9 (0.6-1.3) mg/dL Estimated GFR (MDRD) 79 L (>89) Glucose 99 (74-104) mg/dL Calcium 10.6 H (8.5-10.3) mg/dL Total Bilirubin 1.5 H (0.2-1.0) mg/dL AST 36 (10-42) IU/L ALT 25 (10-60) IU/L Alkaline Phosphatase 64 (42-121) IU/L Total Protein 6.3 L (6.4-8.9) g/dL Albumin 4.2 (3.2-5.5) g/dL Globulin 2.1 (2.1-4.2) g/dL Albumin/Globulin Ratio 2.0 (1.0-2.2) Lipase 36 (11-82) U/L Urine Color YELLOW Urine Clarity CLEAR (CLEAR) Urine pH 5.0 (5.0-7.5) PH Ur Specific [place] <=1.005 (1.002-1.030) Urine Protein TRACE (NEGATIVE) mg/dL Urine Glucose (UA) NEGATIVE (NEGATIVE) mg/dL Urine Ketones >=80 H (NEGATIVE) mg/dL Urine Occult Blood NEGATIVE (NEGATIVE) Urine Nitrite NEGATIVE (NEGATIVE) Urine Bilirubin NEGATIVE (NEGATIVE) Urine Urobilinogen 1 (NORMAL) E.U./dL Ur Leukocyte Esterase NEGATIVE (NEGATIVE) Ur Microscopic Review NOT INDICATED Urine Culture Comments NOT INDICATED 05/16/25 Range/Units 05:09 WBC 55.3 H* (4.8-10.8) x10^3/uL RBC 3.00 L (4.70-6.10) 10^6/uL Hgb 10.0 L (14.0-18.0) g/dL Hct 32.0 L (42.0-52.0) % MCV 106.7 H (80.0-94.0) fL MCH 33.3 H (27.0-31.0) pg MCHC 31.3 L (32.0-36.0) g/dL RDW 19.9 H (12.0-15.0) % Plt Count 119 L (130-450) 10^3/uL MPV 12.2 H (7.4-11.4) fL Neut # (Auto) Not Reportable Lymph # (Auto) Not Reportable [place] # (Auto) Not Reportable Eos # (Auto) Not Reportable Baso # (Auto) Not Reportable Absolute Nucleated RBC Not Reportable Band Neuts % (Manual) Not Reportable Abnorm Lymph % (Manual) Not Reportable Nucleated RBC % Not Reportable Neutrophils # (Manual) Not Reportable Lymphocytes # (Manual) Not Reportable Monocytes # (Manual) Not Reportable Eosinophils # (Manual) Not Reportable Basophils # (Manual) Not Reportable Differential Comment MANUA WBC Morphology 3+ SMUDGE (NORMAL) Platelet Estimate DECREASED (<130,000) (NORMAL) RBC Morph Micro Appear 1+ MACROCYTOSIS (NORMAL) Sodium (135-145) mmol/L Potassium (3.5-4.5) mmol/L Chloride (101-111) mmol/L Carbon Dioxide (21-32) mmol/L Anion Gap (6-13) BUN (6-20) mg/dL Creatinine (0.6-1.3) mg/dL Estimated GFR (MDRD) (>89) Glucose (74-104) mg/dL Calcium (8.5-10.3) mg/dL Total Bilirubin (0.2-1.0) mg/dL AST (10-42) IU/L ALT (10-60) IU/L Alkaline Phosphatase (42-121) IU/L Total Protein (6.4-8.9) g/dL Albumin (3.2-5.5) g/dL Globulin (2.1-4.2) g/dL Albumin/Globulin Ratio (1.0-2.2) Lipase (11-82) U/L Urine Color Urine Clarity (CLEAR) Urine pH (5.0-7.5) PH Ur Specific [place] (1.002-1.030) Urine Protein (NEGATIVE) mg/dL Urine Glucose (UA) (NEGATIVE) mg/dL Urine Ketones (NEGATIVE) mg/dL Urine Occult Blood (NEGATIVE) Urine Nitrite (NEGATIVE) Urine Bilirubin (NEGATIVE) Urine Urobilinogen (NORMAL) E.U./dL Ur Leukocyte Esterase (NEGATIVE) Ur Microscopic Review Urine Culture Comments Diagnostic Imaging Results Diagnostic Imaging Results: positive Final report reviewed and Read independently Diagnostic Imaging Results Comments: CT abd/pelvis today shows SBO with likely transition point in anterior mid abdomen. Dilated stomach and proximal small bowel. No significant free fluid, no free air. Ostomy and prostate seeds in place. Review of Systems Status of ROS: 10 or more systems reviewed and unremarkable except as noted in history and below Exam Exam Vital Signs: Vital Signs x48h Temp Pulse Resp BP Pulse Ox 05/16/25 09:03 77 20 115/97 H 96 05/16/25 07:15 73 20 177/75 H 96 05/16/25 05:16 73 18 161/106 H 98 05/16/25 04:42 98.1 F 78 17 181/101 H 100 GEN: No acute distress, appears younger than stated age, alert and oriented, thin appearing HEENT: NCAT, MMM, EOMI, NC in place, multiple WHSS consisitent with prior skin cancer excision NEURO: CN II-XII grossly intact, dysarthric speech CV: RRR PULM: non labored ABD: soft, minimal LUQ tenderness to deep palpation, mild distension, no rebound or guarding. WHSS consistent with prior surgery. I note a very easily reduicble right inguinal hernia on exam. LLQ ostomy with opaque appliance in place and no gas or stool in the bag. CIRCULATORY: no clubbing, cyanosis, or edema SKIN: concerning lesion on right UE first digit nail LYMPH: no obvious lymphadenopathy MSK: 4/4 strength in all extremities, 2+ pulses in all extremities PSYCH: Affect is appropriate Conclusion/Plan Problem List (1) SBO (small bowel obstruction): Plan: Diagnosis consistent with history, imaging. Physical exam is more reassuring. Based on his presentation and CT, I do recommend NG placement (if possible given h/o nasal polyp) to decompress his stomach. If NG placement attempts are not successful, I recommend keeping patient NPO with mouth swabs for comfort. If NG can be placed, recommend placing NG to LIWS, and patient may have sparing ice chips for comfort. Plan to repeat XR in AM (or sooner if patient has increased ostomy output). If he still has signs of obstruction after being allowed to decompress overnight (with or without NG), plan for SBFT tomorrow. If conservative management fails, will reassess other medical conditions. Patient may require transfer to higher level of care for surgery given multiple medical comorbidities. I [facility] and the primary medicine team. (2) CAD (coronary artery disease): (3) H/O malignant carcinoid tumor of rectum: Plan Care of other medical problems as per primary team. Thank you for consulting us in the care of this patient! Surgery will continue to follow along closely. Lab Results Lab results reviewed: Yes 05/16/25 05:09 05/16/25 05:09 Diagnostic Imaging Results Diagnostic Imaging Results: positive Final report reviewed and Read independently
[2025-05-16] MEDS ORDERED: ACETAMINOPHEN 1,000 MG/100 ML 1,000 MG/100 ML BAG IV PRN (10:38)
[2025-05-16] MEDS ORDERED: ONDANSETRON 4 MG/2 ML VIAL IVP PRN (10:38)
[2025-05-16] MEDS ORDERED: SODIUM CHLORIDE FLUSH 0.9% 10 ML SYRINGE IVP PRN (10:38)
[2025-05-16] MEDS ORDERED: ONDANSETRON ODT 4 MG TABLET TL PRN (10:38)
[2025-05-16] MEDS: HYDROmorphone 0.5 MG/0.5 ML SYRINGE IVP PRN (11:55)
[2025-05-16] MEDS: D5.45NS W/20 MEQ KCL 1,000 ML IV SCH (11:56)
--- NOTE | 2025-05-16 12:42 | XRAY Report ---
PROCEDURE: XR Chest for Line Placement INDICATIONS: NGT TECHNIQUE: One view of the chest was acquired. COMPARISON: None. FINDINGS: Surgical changes and devices: Subdiaphragmatic enteric tube with sideport at the GE junction. Median sternotomy wires are intact. Surgical close overlies the mediastinum. Lungs and pleura: No pleural effusions or pneumothorax. No consolidation. Mediastinum: Mediastinal contours appear normal. Heart size is normal. Bones and chest wall: No suspicious bony lesions. Overlying soft tissues appear unremarkable. IMPRESSION: Subdiaphragmatic enteric tube with sideport at the GE junction, recommend advancement. Reviewed by: Bret Rebolledo MD on 05/16/2025 12:38 PM PST Approved by: Bret Rebolledo MD on 05/16/2025 12:38 PM PST Station ID: [email or web address]
--- NOTE | 2025-05-16 14:27 | XRAY Report ---
PROCEDURE: XR Chest for Line Placement INDICATIONS: gastric tube verification placement TECHNIQUE: One view of the chest was acquired. COMPARISON: None. FINDINGS: Surgical changes and devices: Gastric tube tip and sideport project over the stomach. Sternotomy. CABG. Lungs and pleura: No pleural effusions or pneumothorax. No consolidation. Mediastinum: Mediastinal contours appear normal. Heart size is normal. Bones and chest wall: No suspicious bony lesions. Overlying soft tissues appear unremarkable. IMPRESSION: Gastric tube tip and sideport project over the stomach. Reviewed by: Tony Colon MD on 05/16/2025 2:24 PM PST Approved by: Tony Colon MD on 05/16/2025 2:24 PM PST Station ID: [id number]
[2025-05-16] MEDS: SODIUM CHLORIDE FLUSH 0.9% 10 ML SYRINGE IVP SCH (16:13)
--- NOTE | 2025-05-16 19:16 | ADVANCE CARE PLANNING NOTE ---
Advance Care Planning Planning Encounter Date: 05/16/25 Time: 19:15 Parties in Attendance: Patient, later patient, daughter, Decisional Capacity of the Patient: Patient is decisional. Diagnosis for Encounter (1) SBO (small bowel obstruction): (2) CLL (chronic lymphocytic leukemia): (3) CAD (coronary artery disease): (4) Colostomy in place: (5) Dysarthria as late effect of cerebrovascular accident (CVA): (6) History of prostate cancer: Encounter Subjective/Patient's Story: This is an 89-year-old male with a past medical history as above. He lives in [place]. He is originally from [place]. He was recruited by [employer] for the [employer] program. 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 His says that he is a stoic. He does not discuss his medical care often with her. She knows he had a history of prostate cancer and rectal cancer remotely. He is unclear about his current blood cancer. She knows he goes down to the [facility] to get that care. He has not named a formal POA. He is otherwise able and active. He works around their home in [place]. He walks without assistive devices. He went to see his family in [place] over . They ate a lot of food. He is dealt with his ostomy since his cancer diagnosis and the . Objective/Medical Story: Patient is admitted this hospitalization with an acute small bowel obstruction. He is a never had anything quite like this before. He has a clear transition point in his anterior abdomen. He has an NG tube in place at this time for attempted decompression. Consideration to start on SBFT tomorrow. He may transfer out given that the family wants him to get care under the supervision of a surgeon in the system. Patient has now survived 2 cancers. He has had prostate cancer treated with brachytherapy. He has had rectal cancer, and has had a left colectomy with p ermanent end ostomy. He has some urethral strictures, and occasionally straight caths. Furthermore he had a four-vessel CABG several years ago. ASA and statin was the only medications patient takes consistently. Finally he had a CVA in 2020. He had some resultant dysarthria and dysphagia. His dysphagia was further compounded by a Schatzki's ring which was dilated in March 2025 with improvement of his esophageal dysphagia. His tells me that his dysarthria has gotten worse over the last couple of weeks, unclear if this may be recrudescence of his prior stroke symptoms. Finally the patient has a new diagnosis of CLL. His primary care doctor was persistent about working up his persistent leukocytosis. 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 He follows with oncology at the [facility]. No treatment is offered to him as of yet. His white blood cell count was consistently in the 20K range from January 2023 through March 2023. May have intervally increased to 25 then 26 in June and October 2023. Most recently in our system from 04/2025 it was 30,000. This hospitalization is 55,000 with unclear understanding whether this is an acute reaction in the setting of his SBO, or whether this represents advancement of his disease.. Goals of Care: At baseline, patient is robust and feels well. He has no limitations to his lifestyle. He does not mind going to physicians appointments. He appreciates the care he gets. When I discussed with him what he would do if he were to get so sick that he were to , he is very clear in terms to his and says that they have DNR paperwork filled out at home. This differs from what his had told me previously when she said that he would likely want everything done. He is perseverant and values a trial of all reasonable efforts. He is clear that if he were to be found at home nonresponsive without a pulse or not breathing, he would like to except a natural at that time. He understands the unlikely chance of a good outcome in that situation. While in the hospital, under constant monitoring, he feels like his chances may be better. He is unclear on whether he would elect to be DNR while inpatient. He will remain full code during this hospitalization. His family is at bedside and they understand his wishes. Plan: Full code, full treatment this hospitalization Patient may transfer out to [facility] to get his care under the supervision of a family friend who is a surgeon Patient sounds like he would be a DNR/full treatment for outside of this hospitalization, and I would encourage a POLST be filled out prior to discharge. Will readdress with him the idea of filling out a POLST tomorrow Code Status: Attempt Resuscitation Time spent on advance care plannin
[2025-05-17 05:51] LABS: HCT - HEMATOCRIT 26.6 % (42.0-52.0); HGB - HEMOGLOBIN 8.5 g/dL (14.0-18.0); MEAN PLATELET VOLUME 11.8 fL (7.4-11.4); PLT - PLATELET COUNT 115 10^3/uL (130-450); RED CELL DISTRIBUTION WIDTH 19.5 % (12.0-15.0)
[2025-05-17] MEDS: BENZOCAINE/MENTHOL LOZENGE MM PRN (05:51)
[2025-05-17 06:09] LABS: ALT ALANINE AMINOTRANSFERASE 18.0 IU/L (10-60); AST ASPARTATE AMINOTRANSFERASE 25.0 IU/L (10-42); BUN - BLOOD UREA NITROGEN 12.0 mg/dL (6-20); CARBON DIOXIDE - CO2 31.0 mmol/L (21-32); CREATININE 0.9 mg/dL (0.6-1.3); GFR - MDRD 79.0 (>89)
[2025-05-17 06:16] LABS: ABNORMAL LYMPHS % (MANUAL) 0 %; BAND NEUTROPHILS % (MANUAL) 0 %; BASOPHILS # (MANUAL) 0.0 10^3/uL (0-0.1); EOSINOPHILS # (MANUAL) 0.0 10^3/uL (0-0.7); MONOCYTES # (MANUAL) 0.0 10^3/uL (0.0-1.0)
[2025-05-17 06:23] LABS: LYMPHOCYTES # (MANUAL) 26.7 10^3/uL (1.5-3.5); LYMPHOCYTES % (MANUAL) 84 %; NEUTROPHILS # (MANUAL) 5.1 10^3/uL (1.5-6.6)
[2025-05-17 06:26] LABS: PLATELET ESTIMATE, MANUAL DECREASED (<130,000) (NORMAL); PLATELET MORPHOLOGY NORMAL APPEARANCE (NORMAL)
--- NOTE | 2025-05-17 06:48 | PROVIDER PROGRESS NOTE ---
Subjective General Admit Date: 05/16/25 Other Other Information/Narrative: Patient denies pain this AM. NG placed with 800mL out since placement. He was able to sleep ok last night. Denies n/v. Review of Systems Status of ROS: 10 or more systems reviewed and unremarkable except as noted in history and below Exam Exam Vital Signs: Vital Signs x48h Temp Pulse Resp BP Pulse Ox 05/17/25 05:18 97.9 F 65 18 110/56 L 96 05/16/25 23:54 97.9 F 72 18 111/50 L 92 GEN: No acute distress, alert and oriented, hard of hearing HEENT: NG in place with 800mL out since placement NEURO: CN II-XII grossly intact, dysarthric speech CV: RRR PULM: non labored ABD: soft, non tender to superficial or deep palpation, no distension, no rebound or guarding. WHSS consistent with prior surgery. I note a very easily reduicble right inguinal hernia on exam. LLQ ostomy with opaque appliance in place and no gas or stool in the bag. EXT: no clubbing, cyanosis, or edema SKIN: concerning lesion on right UE first digit nail Impression/Plan Problem List (1) SBO (small bowel obstruction): Plan: Diagnosis consistent with history, imaging. Physical exam is more reassuring. NG placed yesterday, now to LIWS. No ostomy output since admission. Plan for SBFT with gastrograffin this morning. If conservative management fails, will reassess other medical conditions. Patient may require transfer to higher level of care for surgery given multiple medical comorbidities. I have discussed this plan with the patient and the primary medicine team. (2) CLL (chronic lymphocytic leukemia): (3) CAD (coronary artery disease): (4) Colostomy in place: (5) Dysarthria as late effect of cerebrovascular accident (CVA): (6) History of prostate cancer: Plan Care of other medical problems as per primary team. Surgery will continue to follow along closely.
[2025-05-17] MEDS ORDERED: DIATR MEGLU/DIATRIZOATE SODIUM 120 ML BOTTLE ONE (07:41)
--- NOTE | 2025-05-17 08:37 | PROVIDER PROGRESS NOTE ---
Subjective Prog Note Date Prog Note Date: 05/17/25 Prog Note Time: 08:35 Subjective Subjective: Patient continues to do well today. He is still on IV fluids. NG tube still decompressing. Plan to start SBFT today. He denies any nausea or vomiting. Denies any pain. His abdomen is soft, nontender. Discussed his care with his daughter. She is obviously very concerned about her father. We will continue to monitor his situation. Given his clinical stability, soft abdomen, normalizing labs, and appropriate nasogastric decompression, I do not think it is advantageous to transfer him at this time. More specifically, I think the risks of transfer outweigh the benefits of transfer. I discussed his case with surgery this morning. All are in agreement that we will continue to monitor throughout the day. If his Gastrografin challenge progresses appropriately, there is no need for transfer. If he is failing Gastrografin, he should transfer and Dr. Colt Mejia with is aware of this patient's possible need for transfer. Current Medications Current Medications Current Medications: Current Medications Generic Name Dose Route Start Last Admin Trade Name Freq PRN Reason Stop Dose Admin Hydromorphone HCl 0.5 mg 05/16/25 09:17 05/16/25 11:55 Hydromorphone 0.5 Mg/0.5 Ml Syringe IVP 0.5 mg Q2H PRN Administration Severe Pain (Level 7-10) Potassium Chloride/Dextrose/Sod Cl 1,000 mls @ 83.333 mls/hr 05/16/25 10:00 05/16/25 23:49 D5.45ns W/20 Meq Kcl IV 83.33 mls/hr .Q12H LELE Administration Acetaminophen 1,000 mg in 100 mls @ 400 mls/hr 05/16/25 10:38 Acetaminophen IV Q6HR PRN Moderate Pain (Level 4-6) Dexamethasone Sodium Phosphate 50.8 mls @ 203.2 mls/hr 05/17/25 09:00 8 mg/ Sodium Chloride IV 05/17/25 09:01 DAILY LELE Ondansetron HCl 4 mg 05/16/25 10:38 Ondansetron Odt 4 Mg Tablet TL Q6HR PRN Nausea / Vomiting Ondansetron HCl 4 mg 05/16/25 10:38 Ondansetron 4 Mg/2 Ml Vial IVP Q6HR PRN Nausea / Vomiting Sodium Chloride 10 ml 05/16/25 10:38 Sodium Chloride Flush 0.9% 10 Ml Syringe IVP PRN PRN NEEDED PER PROVIDER ORDERS Sodium Chloride 10 ml 05/16/25 17:00 05/17/25 03:12 Sodium Chloride Flush 0.9% 10 Ml Syringe IVP Not Given 0100,0900,1700 LELE Throat Lozenges 1 lozenge 05/17/25 05:16 05/17/25 05:51 Benzocaine/Menthol Lozenge MM 1 lozenge Q2HR PRN Administration Throat pain Objective Vital Signs/Intake & Output Reviewed Vital Signs: Yes Vital Signs: Vital Signs x48h Temp Pulse Resp BP Pulse Ox 05/17/25 05:18 36.6 C 65 18 110/56 L 96 Intake & Output: Intake & Output 05/14/25 05/15/25 05/16/25 05/17/25 23:59 23:59 23:59 23:59 Intake Total 1989 Output Total 1025 / 1025 550 / 550 Balance 965 / 965 -550 / -550 Weight (kg) 52 kg Objective Comments/Other: GEN: No acute distress. Resting comfortably in bed. Repositions in bed independently HEENT: NC/AT, normal appearance of external ears and nose. Hard of hearing at baseline, hearing aids in place. NGT taped in place, intermittent suction Cardiac: Regular rate and rhythm, no murmurs. Euvolemic on exam. Pulm: Lungs CTA bilaterally, no cough, no wheezes. No adventitial lung sounds. Normal effort on room air. Abdomen: Abdomen is soft, nontender throughout. No output or gas in his ostomy bag in the left lower quadrant. Extremities: Moves all 4 extremities equally. Normal tone. Neuro: Face symmetric, CN II through XII intact grossly. No focal neurologic deficits. Psych: Mood euthymic with congruent affect. Appropriate and cooperative. Lab Results 05/17/25 05:40 05/17/25 05:40 Other Labs: Lab Results x24hrs 05/17/25 05/17/25 05/16/25 Range/Units 05:40 05:40 08:55 WBC 31.8 H (4.8-10.8) x10^3/uL RBC 2.52 L (4.70-6.10) 10^6/uL Hgb 8.5 L (14.0-18.0) g/dL Hct 26.6 L (42.0-52.0) % MCV 105.6 H (80.0-94.0) fL MCH 33.7 H (27.0-31.0) pg MCHC 32.0 (32.0-36.0) g/dL RDW 19.5 H (12.0-15.0) % Plt Count 115 L (130-450) 10^3/uL MPV 11.8 H (7.4-11.4) fL Neut # (Auto) Not Reportable Lymph # (Auto) Not Reportable [place] # (Auto) Not Reportable Eos # (Auto) Not Reportable Baso # (Auto) Not Reportable Absolute Nucleated RBC Not Reportable Total Counted 100 Band Neuts % (Manual) 0 (0 - 10) % Abnorm Lymph % (Manual) 0 % Nucleated RBC % Not Reportable Neutrophils # (Manual) 5.1 (1.5-6.6) 10^3/uL Lymphocytes # (Manual) 26.7 H (1.5-3.5) 10^3/uL Monocytes # (Manual) 0.0 (0.0-1.0) 10^3/uL Eosinophils # (Manual) 0.0 (0-0.7) 10^3/uL Basophils # (Manual) 0.0 (0-0.1) 10^3/uL Differential Comment MANUAL DIFFERENTIAL WBC Morphology 3+ SMUDGE (NORMAL) Platelet Estimate DECREASED (<130,000) (NORMAL) Platelet Morphology NORMAL APPEARANCE (NORMAL) RBC Morph Micro Appear 1+ POIKILOCYTOSIS 1+ ANISOCYTOSIS (NORMAL) Sodium 139 (135-145) mmol/L Potassium 4.6 H (3.5-4.5) mmol/L Chloride 107 (101-111) mmol/L Carbon Dioxide 31 (21-32) mmol/L Anion Gap 1.0 L (6-13) BUN 12 (6-20) mg/dL Creatinine 0.9 (0.6-1.3) mg/dL Estimated GFR (MDRD) 79 L (>89) Glucose 107 H (74-104) mg/dL Calcium 9.1 (8.5-10.3) mg/dL Total Bilirubin 1.4 H (0.2-1.0) mg/dL AST 25 (10-42) IU/L ALT 18 (10-60) IU/L Alkaline Phosphatase 52 (42-121) IU/L Total Protein 5.0 L (6.4-8.9) g/dL Albumin 3.3 (3.2-5.5) g/dL Globulin 1.7 L (2.1-4.2) g/dL Albumin/Globulin Ratio 1.9 (1.0-2.2) Urine Color YELLOW Urine Clarity CLEAR (CLEAR) Urine pH 5.0 (5.0-7.5) PH Ur Specific [place] <=1.005 (1.002-1.030) Urine Protein TRACE (NEGATIVE) mg/dL Urine Glucose (UA) NEGATIVE (NEGATIVE) mg/dL Urine Ketones >=80 H (NEGATIVE) mg/dL Urine Occult Blood NEGATIVE (NEGATIVE) Urine Nitrite NEGATIVE (NEGATIVE) Urine Bilirubin NEGATIVE (NEGATIVE) Urine Urobilinogen 1 (NORMAL) E.U./dL Ur Leukocyte Esterase NEGATIVE (NEGATIVE) Ur Microscopic Review NOT INDICATED Urine Culture Comments NOT INDICATED Assessment/Plan Problem List (1) SBO (small bowel obstruction): Impression: Continues to do well clinically. His vital signs remained stable. His labs have effectively normalized. Leukocytosis as below. His K is 4.6, bilirubin 1.4. Patient is tolerating nasogastric decompression. He has not required any pain medications over the last 24 hours. His abdomen is soft both superficial and deep palpation. He has not had any ostomy output yet. Recall patient presenting with acute abdominal pain, no clear transition point on his CTA. Lots of contents in his stomach. Pain improved with pain meds in the ED. NGT was placed on day of admission with adequate decompression. - Surgery following, discussed with them 05/17. Plan for SBFT today - NGT placed, placed to suction - Start SBFT today - If contrast media not progressing as expected by early afternoon, will reach out to [facility] at family's request for consideration of transfer - Starting on D5 half-normal saline with KCl - Monitor BMP a.m. - Pain meds available parenterally, including parenteral Acetaminophen and hydromorphone 0.5mg (2) CLL (chronic lymphocytic leukemia): Impression: His leukocytosis to return to his baseline around 30,000. Supportive of the fact that his increase this hospitalization was reactive. Patient with history of smoldering CLL. Not been considered for start of treatment at this point in time. He normally has a white blood cell count around 30,000. Up to 55,000 this hospitalization. Associated thrombocytopenia, stable from earlier this month. Will trend CBC, if continues to worsen may need transfer to oncology - Continue trending CBC daily while in house (3) CAD (coronary artery disease): Impression: Stable. Denies any chest pain. Denies anginal equivalents. Remote history of CABG. His only home medications are aspirin and atorvastatin 40 mg - N.p.o. as above - Resume atorvastatin and aspirin once he is eating and drinking. 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 No output in the setting of his SBO. - Continue to monitor for output return as above. (5) Dysarthria as late effect of cerebrovascular accident (CVA): Impression: Patient shares that he was formally on a pured diet. But he has been increasing his intake and slowly adding more solid foods after his esophageal dilation earlier this year. Patient has had dysphagia and dysarthria. Dispo started around 2020 when he had a stroke. His dysphagia was more attributable to esophageal stricture and a Schatzki ring which was dilated last month. He swallowing better now. Of note he was functioning so well that his primary care doctor was considering a PEG tube if unable to be dilated. He has followed with speech therapy in the community. - Consider ST evaluation tomorrow - Will continue to monitor as we advance diet (6) History of prostate cancer: Impression: Remote. Status post brachytherapy. I spent a total of 42 minutes in the care of this patient today. This time was spent reviewing labs, vital signs, imaging, interviewing and examining the patient, and discussing plan of care with them and their other care providers. Management of an acute illness that poses a threat to life or bodily function. Parenteral controlled substances. Data review as above. Discussed with surgery as above and plan to start SBFT. Extensive conversation with patient's family today. [id number].
[2025-05-17] MEDS: DEXAMETHASONE 10 MG/ML VIAL IVP ONE (09:51)
[2025-05-17] MEDS: DEXTROSE 5%-0.45% NACL 1,000 ML IV SCH (09:55)
--- NOTE | 2025-05-17 09:55 | XRAY Report ---
PROCEDURE: XR SBFT Challenge Panel INDICATIONS: small bowel obstruction COMPARISON: CT abdomen May 16, 2025 FINDINGS: KUB: Preprocedural supervisor maple products film demonstrates nasogastric or orogastric tube extending into the left upper abdomen. Oral contrast was instilled through the tube. No abnormally dilated bowel or significant air-fluid levels on the supervisor maple [employer] image. There is some stool throughout the transverse colon. Prostate radiation seeds are noted lower pelvis. Degenerative changes lower thoracic, lumbar spine and hips. Small bowel: There is normal transit time of barium through the small bowel, reaches the colon within 90-minute. Small bowel segments are of normal caliber throughout without radiographic evidence of abnormally dilated small bowel as previously noted on CT. IMPRESSION: Normal transit of contrast through the small bowel. No radiographic evidence of abnormally dilated small bowel. Reviewed by: Kyle Nunez MD on 05/17/2025 9:52 AM PST Approved by: Kyle Nunez MD on 05/17/2025 9:52 AM PST Station ID: [id number]
--- NOTE | 2025-05-17 12:19 | PHARMACY PROGRESS NOTE ---
Best Possible Medication History Admit Date and Time: 05/16/25 [id number] Home Medications Medication Instructions Recorded Confirmed Type atorvastatin 40 mg tablet 40 mg PO HS 02/13/23 5 History omega-3 fatty acids 1,000 mg 1,000 mg PO DAILY 3 05/16/25 History capsule aspirin 81 mg tablet,delayed 81 mg PO DAILY 05/12/24 1 07/18/24 History release (Adult Low Dose Aspirin) pantoprazole 40 mg granules 40 mg PO DAILY #60 ea 03/1705/16/25 Rx delayed-release for susp in packet ferrous sulfate 300 mg (60 mg 60 mg PO DAILY 05/17/25 05/17/25 History iron)/5 mL oral liquid Processed by: Pharmacy (Medication reconciliation completed by Voice ProfessorAshok.) Medications reviewed in ED?: No Medication History completed: Yes Patient Interview: Completed Secondary Source(s): Other family member and Insurance records [facility] Statement: As the person ultimately responsible for medication therapy, providers are able to order a medication from an existing home medication list in [facility] via the "Reconcile Routine" prior to Confirmation of that medication by marketing support specialist. Such practice is discouraged except when the physician, in their clinical judgment, deems that a medical need exists for a medication without regard to previous use.
[2025-05-17] MEDS: ATORVASTATIN 40 MG TABLET PO SCH (21:51)
[2025-05-18] MEDS: ASPIRIN EC 81 MG TABLET PO SCH (08:55)
--- NOTE | 2025-05-18 10:24 | Discharge Summary ---
"Discharge Summary Admit Date: 05/16/25 Discharge Date: 05/18/25 Discharging Provider: Pankaj Gutierrez Primary Care Provider: Rhonda Bedolla Code Status: Attempt Resuscitation Discharge Facility Name: Home DIAGNOSES Discharge Diagnoses with Status of Each Condition: ## SBO (small bowel obstruction) He presented with acute abdominal pain the night prior to admission. This is associated with nausea and vomiting. He is found to have a transition point in his anterior abdomen suggestive of SBO. He had an NGT placed early on his admission which fully resolved his symptoms. The following day, he was started on SBFT which resulted in resolution of SBO. He had stool in his ostomy bag by the end of the day. His diet was advanced initially to clears then to a pured diet. Further advance with speech as below. Unclear if his SBO was related to his CLL. Consideration was made for transfer to at the family's request. He was progressing here by the time further consideration was made. In consultation with a provider at the [facility], we did trial him on 8 mg of Decadron. This may have expedited his improvement. ## CLL (chronic lymphocytic leukemia): On initial presentation there was concern for advancement of CLL. His WBCs were up to 55,000. This turned out to be reactive in setting of his acute SBO. With decompression, they returned back down to near his baseline of 30,000. - Should continue following with his specialist at ## CAD (coronary artery disease): Stable. He was resumed on his home medications prior to discharge. Remote history of CABG. His only home medications are aspirin and atorvastatin 40 mg ## Colostomy in place Patient with history of rectal cancer, has had stable colostomy for the better part of 20 years. He had a small appliance on which did not contain all of his stool contents when he eventually opened up. This was exchanged by nursing overnight prior to discharge ## Dysarthria as late effect of cerebrovascular accident (CVA) Patient has had dysphagia and dysarthria. This started around 2020 when he had a stroke. His dysphagia then worsened with known esophageal stricture and Schatzki's ring which was dilated in March. He is swallowing better now. He reports that he has some globus sensation in the upper airway. He met with speech therapy during this hospitalization, they think he would benefit from further outpatient speech therapy. - Recommend referral to ongoing outpatient ST - Speech therapy was able to give him some exercises ## History of prostate cancer: Remote. Status post brachytherapy. Stable HPI History of Present Illness: This is a very vibrant 89-year-old male with past medical history notable for prostate cancer, rectal cancer, colostomy in place, smoldering CLL, a prior CVA with resultant dysarthria, dysphagia, recent EGD for dilation for esophageal dysphagia, and an as of yet indeterminant nasal polyp who presents with acute onset abdominal pain on the morning of admission, found to have a small bowel obstruction. Colt is a limited historian due to the pain medications he has received. He is quite somnolent. He is not in as much pain as when he came in. He is also fairly dysarthric which his says has been getting worse over the last 2 weeks. Patient worsened pain on the evening prior to admission extreme pain in his mid epigastrium. His was concerned that this was due to a large thanksgiving meal 2 days ago. He has associated nausea and vomiting. His labs look well generally. Other than his white blood cell count. The patient is in surveillance regarding his CLL. His WBCs here have typically been in the 20- 30,000 range. He is found to be much higher this admission at 50,000. Unclear if this may be or acute reaction in setting of his abdominal pain and obstruction. He was found on CT abdomen pelvis to have evidence of a small bowel obstruction with transition point in the anterior mid abdomen. Distended stomach filled with fluid. He got more nauseous when he laid flat for the CT scan. His pain improved with pain medications in the ED He has a storied history. See ACP note from today. Patient is full code as of admit, further goals of care conversations ongoing and as details emerge. CONSULTS | PROCEDURES Consultations: General Surgery Procedures: SBFT 05/17 HOSPITAL COURSE Hospital Course: Patient was admitted 05/16 from the ED. It was initially unclear whether an NG tube would be able to be placed. He had ample amounts of contents in his stomach. NGT was placed midmorning on 05/16. This resolved his pain almost immediately. He was able to successfully decompress. Due to limited DI staff, he was unable to be started on a SBFT on day of admission. This was started in the morning of 05/17. He had rapid resolution of his transition point. This may have been mediated by a dose of IV steroids which were started after curbside of a general surgeon at the [facility], Dr. Colt Mejia. He was able to advance to clears by midday and was eating a regular diet by the end of the day with his NG tube removed. Family wanted him to stay 1 additional night to ensure his symptoms did not return spontaneously. This also afforded the ability to meet with speech therapy who provided some recommendations for his dysphagia. He was seen and evaluated on the morning of 05/18. He is eager to get home. He feels well. He was eating a good breakfast without significant effort. He had ample stool in his ostomy appliance. He reports that he had leakage from his appliance overnight prior to discharge due to significant output following resolution of his obstruction. Recommended that he follows up with speech therapy in the outpatient setting for ongoing work on his swallow. He was given some exercises by speech therapy here prior to discharge. Continue to follow with his oncologist. ALLERGIES Allergies Allergy/AdvReac Type Severity Reaction Status Date / Time No Known Drug Allergies Allergy Verified 04/26/25 14:17 MEDICATIONS Ambulatory Orders Medication Instructions Recorded Confirmed atorvastatin 40 mg tablet 40 mg PO HS 02/13/23 5 omega-3 fatty acids 1,000 mg 1,000 mg PO DAILY 3 05/16/25 capsule aspirin 81 mg tablet,delayed 81 mg PO DAILY 05/12/24 1 07/18/24 release (Adult Low Dose Aspirin) pantoprazole 40 mg granules 40 mg PO DAILY #60 ea 03/1705/16/25 delayed-release for susp in packet ferrous sulfate 300 mg (60 mg 60 mg PO DAILY 05/17/25 05/17/25 iron)/5 mL oral liquid PHYSICAL EXAM AT DISCHARGE Vital Signs: Vital Signs x48h Temp Pulse Resp BP Pulse Ox 05/18/25 08:53 36.8 C 95 18 139/70 H 97 05/18/25 05:25 36.6 C 59 L 14 114/56 L 97 LABS 05/17/25 05:40 05/17/25 05:40 DIAGNOSTIC IMAGING Diagnostic Imaging Results: Final report reviewed and Read independently Diagnostic Imaging Results Comments: SBFT 05/18: There is normal transit time of barium through the small bowel, reaches the colon within 90-minute. Small bowel segments are of normal caliber throughout without radiographic evidence of abnormally dilated small bowel as previously noted on CT. FOLLOW UP Follow Up: Follow-up with primary care provider in the next 2 weeks to ensure ongoing symptom resolution Follow-up with oncology within the next month for ongoing surveillance TIME SPENT Time Spent in Discharge (Minutes): 40 Discharge Plan Discharge Patient Disposition: 01 Home, Self Care Condition: Stable Medically Cleared Date:: 05/18/25 Prescriptions: Continued atorvastatin 40 MG tablet 40 mg PO HS omega-3 fatty acids 1,000 MG capsule 1,000 mg PO DAILY pantoprazole [address] for susp in packet 40 mg PO DAILY Qty: 60 2RF ferrous sulfate 300 mg (60 mg iron)/5 mL liquid 60 mg PO DAILY aspirin [Adult Low Dose Aspirin] 81 mg tablet,delayed release (DR/EC) 81 mg PO DAILY Activity Restrictions: No Restrictions Diet: Regular Health Concerns: You were admitted to the hospital with a blockage in your small intestine (small bowel obstruction) which may or may not be related to your leukemia (CLL). You have been treated with gastrografin and your bowel obstruction has resolved, you are now ready to go home. Please follow these instructions carefully to help you recover and know when to seek medical attention. What to Expect at Home * You may feel tired and weak for several days after leaving the hospital. This is normal as your body continues to heal. * Your appetite may be reduced initially, but should gradually improve over the next few days to weeks. * You may have some mild abdominal discomfort or cramping as your bowel function returns to normal. Diet and Eating * Start slowly: Begin with clear liquids (water, broth, clear juices) and gradually advance to soft, easily digestible foods as tolerated. * Eat small, frequent meals rather than large meals. * Avoid high-fiber foods, raw vegetables, nuts, seeds, and tough meats initially. * Chew your food thoroughly and eat slowly. * Stay well-hydrated by drinking plenty of fluids throughout the day. Medications * Pain management: Take pain medications as prescribed. If you experience constipation from pain medications, notify your doctor. * Nausea medications: Take anti-nausea medications as prescribed to help control any nausea or vomiting. * Infection prevention: Because CLL affects your immune system, you are at higher risk for infections. Take any prescribed antibiotics or preventive medications exactly as directed. Activity * Gradually increase your activity level as tolerated. * Avoid heavy lifting (more than 10 pounds) or strenuous exercise for at least 2 weeks. * Get plenty of rest and listen to your body. Warning Signs - Call Your Doctor or Go to the Emergency Room * Severe abdominal painor pain that is getting worse * Vomitingthat won't stop or vomiting blood * No bowel movements or inability to pass gasfor more than 24 hours * Feverabove 100.4F (38C) * Severe bloatingor abdominal swelling * Blood in your stoolor black, tarry stools * Unusual bleeding or bruising * Signs of dehydration: extreme thirst, dry mouth, dark urine, dizziness, or decreased urination * Difficulty breathingor chest pain * Signs of infection: cough, burning with urination, or any area of redness or warmth on your skin Follow-Up Care * Schedule a follow-up appointmentwith your oncologist within 1-2 weeks of discharge. * Continue regular monitoringof your CLL as recommended by your cancer doctor. * Keep all scheduled appointments for blood work and imaging studies. Finally, the speech therapist was able to work with you. You should keep working with speech therapy to improve your swallow in the community. These are like physical therapist for your large muscles. They can help you with your swallow over time. They may help with your speech as well. Spent a pleasure caring for you! I hope you continue to do well. Print Language: [place] Patient Instructions: Small Bowel Obstruction, Dysphagia: Exercises, Dysphagia Larynx Lift Exercises Follow-up Care: Rhonda Bedolla MD [Primary Care Provider, Family Practice] Vitals documented within 30 minutes of discharge?: Yes (see vitals)"
[2025-05-18 11:45] VITALS: BP 114/59; TEMP 98.1; O2SAT 98
--- NOTE | 2025-05-19 15:41 | Speech Therapy Plan of Care ---
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 Chase PALMA dilated 17 -> 20mm History of colostomy SPEECH ASSESSMENT Assessment: Relevant History: Hospitalized for SBO; CLL; CAD. Hx rectal CA with colostomy (~20 yrs), CVA 2020 resulting in dysarthria, esophageal dysphagia, and mild aphasia. Known esophageal stricture and Schatzki ring; s/p esophageal dilation few weeks ago. Previously on pured diet; now slowly introducing soft solids. ST consulted for swallow evaluation and diet education. S Subjective: Pt seated upright, dressed, awaiting discharge. Reports concern regarding swallowing safety; tries to eat carefully. Notes others sometimes have difficulty understanding speech. Baseline wet/gurgly vocal quality observed. O Objective: Oral Motor/Speech: Reduced laryngeal elevation/excursion on dry swallow; weak cough. Mild hyperkinetic dysarthria; responded well to slow rate and overarticulation cues. Swallow Trials: Thin liquids (cup/straw), pudding, daphne cracker. Findings: Reduced laryngeal elevation/excursion Audible, effortful swallows with air movement, suggestive of reduced BOT retraction, incomplete posterior pharyngeal wall contact, and reduced laryngeal vestibule closure No overt cough; weak cough limits clearance A Assessment: Mild oropharyngeal dysphagia with impaired hyolaryngeal excursion, airway protection, and BOT retraction; reduced ability to clear secretions. Mild hyperkinetic dysarthria responsive to cueing. Risk for combined oropharyngeal + esophageal dysphagia given recent dilation and structural history. P Plan / Recommendations: Continue soft solids with thin liquids; small bites/sips, slow rate, mindful pacing Remain upright for all PO intake, =30 min post-meal Alternate solids/liquids as needed; frequent oral care Outpatient speech therapy for swallow exercises, dysarthria strategies, safe- swallow behaviors Consider repeat MBSS if increased difficulty with solids, suspected airway compromise, or lack of improvement following outpatient therapy
== END 2025-05-18 11:43 | disposition home or self-care (01) | DRG 389 ==
LOC: MS2 04:35 → ED 04:35 → MS2 10:26
PROVIDERS: ADMIT Student in an Organized Health Care Education/Training Program; ATTEND Student in an Organized Health Care Education/Training Program